=== PATIENT | male | born 1970 | race Caucasian/White ===

== ENCOUNTER 2016-06-28 20:16 | Inpatient (IN) | payer OTHER ==
[2016-06-28] MEDS ORDERED: DIPH,PERTUS(ACELL)TETVAC-LF 0.5 ML VIAL IM ONE (21:25)
[2016-06-28] MEDS ORDERED: MORPHINE SULFATE 2 MG/ML SYRINGE IVP STA (21:25)
[2016-06-28] MEDS ORDERED: ACETAMINOPHEN TAB 325 MG TAB PO STA (21:25)
[2016-06-28] MEDS ORDERED: PIPERACILLIN-TAZOBACTAM 3.375 GM in DEXTROSE/WATER 1 50ML.BAG IVPB STA (21:28)
[2016-06-28 22:18] LABS: Basophils # (A) 0.2 k/uL (0-0.2); Basophils % (A) 1 %; CH 32.8; CHCM 37.5; Eosinophils # (A) 0.2 k/uL (0-0.7); Eosinophils % (A) 1 %; HCT 40.2 % (39.0-53.0); HGB 14.9 gm/dL (13.0-17.5); Hyperchromasia Slight; Luc # (Auto) 0.19; Luc % (Auto) 1; Lymphocytes % (A) 7 %; MCH 32.7 pg (25.0-35.0); MCHC 37.1 g/dL (31.0-37.0); Mean Platelet Volume 7.2; Monocytes # (A) 0.7 k/uL (0-1.0); Monocytes % (A) 5 %; Neutrophils # (A) 12.4 k/uL (1.3-7.7); Neutrophils % (A) 85 %; RBC 4.57 m/uL (4.30-5.90); RDW 12.8 % (11.5-15.5); WBC 14.6 k/uL (3.8-10.6); WBC (Perox) 14.42
[2016-06-28 22:24] LABS: ALT 40 U/L (21-72); AST 40 U/L (17-59); Alkaline Phosphatase 68 U/L (38-126); Anion Gap 12 mmol/L; Blood Urea Nitrogen 16 mg/dL (9-20); Calcium 8.9 mg/dL (8.4-10.2); Carbon Dioxide 22 mmol/L (22-30); Chloride 102 mmol/L (98-107); Glucose 118 mg/dL (74-99); Non-African American GFR(MDRD) >60 (>60 ml/min/1.73 sqM); Potassium 4.6 mmol/L (3.5-5.1); Sodium 136 mmol/L (137-145); Total Bilirubin 0.9 mg/dL (0.2-1.3); Total Protein 7.1 g/dL (6.3-8.2)
--- NOTE | 2016-06-28 22:26 | XR ---
EXAM: XR Right Knee, 3 views. CLINICAL HISTORY: Reason: Pain TECHNIQUE: Three views of the right knee. COMPARISON: No relevant prior studies available. FINDINGS: Bones/joints: No acute fracture or dislocation. Mild degenerative spurring of the tibial spines. Small patellar osteophytes. Prominent quadriceps enthesophyte. No significant right knee effusion. Soft tissues: Unremarkable. IMPRESSION: No acute osseous abnormality. Mild degenerative changes.
[2016-06-28] MEDS ORDERED: VANCOMYCIN 1,000 MG in SODIUM CHLORIDE 0.9% 250 ML IVPB STA (22:27)
--- NOTE | 2016-06-28 23:19 | ED ---
Extremity Problem HPI - General Chief complaint: Extremity Problem,Nontraumatic Stated complaint: Knee Pain/Infection Time Seen by Provider: 06/28/16 21:10 Source: patient Mode of arrival: ambulatory Limitations: no limitations - History of Present Illness Initial comments: He was seen by his family doctor today for right-sided leg and the knee cellulitis, he was given intramuscular antibiotic injection and was sent home with Augmentin 1 g by mouth twice a day, he presents to the ER with a fever of 101 and a cellulitis was marked by his family doctor now it's spreading beyond the highlight her markings on his knee is getting more painful and fever is not responding to Tylenol. It started couple days ago and in spite of for outpatient antibiotic treatment is getting worse. No headaches no neck stiffness no chest pain no abdominal pain no frequency urgency dysuria pain in the infection area is worse now - Related Data Home Medications Medication Instructions Recorded Confirmed Amoxic-Pot Clav 875-125Mg 1 tab PO Q12H 06/28/16 06/28/16 [Augmentin 875-125] Cholecalciferol [Vitamin D3] 2,000 unit PO DAILY 06/28/16 06/28/16 Citalopram Hydrobromide [CeleXA] 40 mg PO HS 06/28/16 06/28/16 Ibuprofen [Motrin] 800 mg PO Q8H PRN 06/28/16 06/28/16 Lisinopril [Zestril] 20 mg PO HS 06/28/16 06/28/16 Multivitamins, Thera [Multivitamin] 1 tab PO DAILY 06/28/16 06/28/16 Allergies Allergy/AdvReac Type Severity Reaction Status Date / Time No Known Allergies Allergy Verified 06/28/16 21:18 Review of Systems ROS Statement: Those systems with pertinent positive or pertinent negative responses have been documented in the HPI. ROS Other: All systems not noted in ROS Statement are negative. Past Medical History Past Medical History: Hypertension Past Surgical History: No Surgical Hx Reported Past Psychological History: Depression Smoking Status: Never smoker Past Alcohol Use History: None Reported Past Drug Use History: None Reported General Exam - General Exam Comments Initial Comments: General: The patient is awake and alert, in no distress, and does not appear acutely ill. Skin: Skin is warm and dry and no rashes or lesions are noted. He has a large area of cellulitis above the knee and below the knee, is quite large area about 15 inches long and about 8 inches wide tender is erythematous and somewhat warm and even compromising the knee movement Eye: Pupils are equal, round and reactive to light, extra-ocular movements are intact; there is normal conjunctiva bilaterally. Ears, nose, mouth and throat: There are moist mucous membranes and no oral lesions. Neck: The neck is supple, there is no tenderness or JVD. Cardiovascular: There is a regular rate and rhythm. No murmur, rub or gallop is appreciated. He is bit tachycardic Respiratory: To auscultation bilateral, no wheezing no rhonchi no distress respiratory gupta noticed Gastrointestinal: Soft, non-distended, non-tender abdomen without masses or organomegaly noted. There is no rebound or guarding present. Bowel sounds are unremarkable. Back: There is no tenderness to palpation in the midline. There is no obvious deformity. Musculoskeletal: Normal ROM, no tenderness, There is no pedal edema. There is no calf tenderness or swelling. No cords were appreciated. Neurological: CN II-XII intact, Cranial nerves III through XII are intact. There are no obvious motor or sensory deficits. Coordination appears grossly intact. Speech is normal. Psychiatric: Cooperative, appropriate mood & affect, normal judgment. Limitations: no limitations Course Vital Signs 06/28/16 06/28/16 20:59 23:07 Temperature 101.0 F H 101.3 F H Pulse Rate 103 H 90 Respiratory 16 16 Rate Blood Pressure 153/76 123/58 O2 Sat by Pulse 95 100 Oximetry Discussed patient's labs with him and recommended that we put him in the hospital for the IV antibiotics and will consult infectious disease as well as orthopedics to ensure that the infection is not affecting the knee joint Medical Decision Making - Lab Data Result diagrams: 06/28/16 22:00 06/28/16 22:00 Lab Results 06/28/16 06/28/16 Range/Units 22:00 22:00 WBC 14.6 H (3.8-10.6) k/uL RBC 4.57 (4.30-5.90) m/uL Hgb 14.9 (13.0-17.5) gm/dL Hct 40.2 (39.0-53.0) % MCV 88.0 (80.0-100.0) fL MCH 32.7 (25.0-35.0) pg MCHC 37.1 H (31.0-37.0) g/dL RDW 12.8 (11.5-15.5) % Plt Count 170 (150-450) k/uL Neutrophils % 85 % Lymphocytes % 7 % Monocytes % 5 % Eosinophils % 1 % Basophils % 1 % Neutrophils # 12.4 H (1.3-7.7) k/uL Lymphocytes # 1.0 (1.0-4.8) k/uL Monocytes # 0.7 (0-1.0) k/uL Eosinophils # 0.2 (0-0.7) k/uL Basophils # 0.2 (0-0.2) k/uL Hyperchromasia Slight Sodium 136 L (137-145) mmol/L Potassium 4.6 (3.5-5.1) mmol/L Chloride 102 (98-107) mmol/L Carbon Dioxide 22 (22-30) mmol/L Anion Gap 12 mmol/L BUN 16 (9-20) mg/dL Creatinine 1.08 (0.66-1.25) mg/dL Est GFR (MDRD) Af Amer >60 (>60 ml/min/1.73 sqM) Est GFR (MDRD) Non-Af >60 (>60 ml/min/1.73 sqM) Glucose 118 H (74-99) mg/dL Calcium 8.9 (8.4-10.2) mg/dL Total Bilirubin 0.9 (0.2-1.3) mg/dL AST 40 (17-59) U/L ALT 40 (21-72) U/L Alkaline Phosphatase 68 (38-126) U/L Total Protein 7.1 (6.3-8.2) g/dL Albumin 4.2 (3.5-5.0) g/dL Disposition Clinical Impression: Cellulitis Disposition: ADMITTED IP TO THIS HOSP Condition: Good
[2016-06-28] MEDS ORDERED: ACETAMINOPHEN TAB 325 MG TAB PO PRN (23:22)
[2016-06-28] MEDS ORDERED: ONDANSETRON 4 MG/2 ML VIAL IVP PRN (23:22)
[2016-06-28] MEDS ORDERED: NALOXONE 0.4 MG/ML 1 ML VIAL IV PRN (23:22)
[2016-06-28] MEDS ORDERED: IBUPROFEN 600 MG TAB PO STA (23:47)
[2016-06-29 00:48] VITALS: BMI 36.3
[2016-06-29] MEDS ORDERED: CITALOPRAM HYDROBROMIDE 20 MG TAB PO STA (01:08)
[2016-06-29] MEDS: MORPHINE SULFATE 4 MG/ML SYRINGE IV PRN ×4 (07:57→21:11)
[2016-06-29] MEDS ORDERED: PIPERACILLIN-TAZOBACTAM 3.375 GM in DEXTROSE/WATER 1 50ML.BAG IVPB SCH (08:00)
--- NOTE | 2016-06-29 08:21 | P.CNOR ---
History of Present Illness - HPI Consult date: 06/29/16 History of present illness: This is a pleasant 46-year-old gentleman who began having some soreness in his right knee on Monday. He noted a small poke hole at the anterior aspect of his knee. On Monday he had increased soreness and presented to his primary care physician on Monday. He was given a intermuscular shot of antibiotics and Augmentin. His symptoms continued to worsen and he had a fever of 101. Subsequently he presented to the emergency department. Since his admission he is had marked improvement in his symptoms. He seen and evaluated at bedside with Dr. Collins Kim this morning. Overall he is feeling better. He has no new complaints at this time. He denies any history of trauma or fall. Review of Systems See HPI Past Medical History Past Medical History: Hypertension, Sleep Apnea/CPAP/BIPAP History of Any Multi-Drug Resistant Organisms: None Reported Past Surgical History: Hernia Repair Past Psychological History: Depression Smoking Status: Former smoker Past Alcohol Use History: None Reported Past Drug Use History: None Reported - Past Family History Father Family Medical History: Congestive Heart Failure (CHF) Additional Family Medical History / Comment(s): Depression Mother Family Medical History: Cancer, Hyperlipidemia Medications and Allergies Home Medications Medication Instructions Recorded Confirmed Type Amoxic-Pot Clav 875-125Mg 1 tab PO Q12H 06/28/16 06/28/16 History [Augmentin 875-125] Cholecalciferol [Vitamin D3] 2,000 unit PO DAILY 06/28/16 06/28/16 History Citalopram Hydrobromide [CeleXA] 40 mg PO HS 06/28/16 06/28/16 History Ibuprofen [Motrin] 800 mg PO Q8H PRN 06/28/16 06/28/16 History Lisinopril [Zestril] 20 mg PO HS 06/28/16 06/28/16 History Multivitamins, Thera [Multivitamin] 1 tab PO DAILY 06/28/16 06/28/16 History Allergies Allergy/AdvReac Type Severity Reaction Status Date / Time No Known Allergies Allergy Verified 06/28/16 21:18 Physical Examination Patient is alert and orientated 3. He is not appear acutely ill. He is not appear in acute distress. Head normal cephalic atraumatic. Neck is supple. Breathing appears nonlabored. There is a large area has been marked around his right knee. There is a small area of cellulitis. Cellulitis appears much improved from the previous markings. There is somewhat warm over the area of erythema. He is not appear to have any joint effusion on palpation. Motion from near full extension to 90 flexion. Calf is soft and nontender. Sensation and circulatory status is intact. Results Knee x-rays are negative for fracture or dislocation. No joint effusion. - Labs Result Diagrams: 06/28/16 22:00 06/28/16 22:00 Assessment and Plan (1) Cellulitis Status: Acute Plan: The clinical and x-ray findings were discussed with the patient at bedside with Dr. Collins Kim. Patient's symptoms are consistent with septic prepatellar bursitis. There is no joint effusion and he has fairly good range of motion of the knee without much difficulty. The patient has had significant improvement with IV antibiotics since his admission. At this point no surgical intervention is planned. Continue with IV antibiotics and moist heat. We'll follow patient closely with you. Thank you for this consult.
[2016-06-29 08:47] LABS: Basophils % (A) 0 %; CH 32.3; CHCM 36.9; Eosinophils # (A) 0.1 k/uL (0-0.7); Eosinophils % (A) 1 %; HCT 40.9 % (39.0-53.0); HDW 2.95; HGB 14.5 gm/dL (13.0-17.5); Luc # (Auto) 0.23; Luc % (Auto) 2; Lymphocytes % (A) 7 %; MCH 31.3 pg (25.0-35.0); MCHC 35.5 g/dL (31.0-37.0); MCV 88.2 fL (80.0-100.0); Mean Platelet Volume 7.2; Monocytes # (A) 0.9 k/uL (0-1.0); Monocytes % (A) 7 %; Neutrophils # (A) 11.6 k/uL (1.3-7.7); Neutrophils % (A) 84 %; RBC 4.63 m/uL (4.30-5.90); RDW 12.8 % (11.5-15.5); WBC 13.9 k/uL (3.8-10.6); WBC (Perox) 14.43
[2016-06-29 08:52] LABS: ALT 39 U/L (21-72); AST 33 U/L (17-59); Alkaline Phosphatase 62 U/L (38-126); Anion Gap 11 mmol/L; Blood Urea Nitrogen 15 mg/dL (9-20); Calcium 8.7 mg/dL (8.4-10.2); Carbon Dioxide 22 mmol/L (22-30); Chloride 107 mmol/L (98-107); Glucose 100 mg/dL (74-99); Non-African American GFR(MDRD) >60 (>60 ml/min/1.73 sqM); Potassium 4.6 mmol/L (3.5-5.1); Sodium 140 mmol/L (137-145); Total Bilirubin 1.1 mg/dL (0.2-1.3); Total Protein 6.7 g/dL (6.3-8.2)
[2016-06-29] MEDS: MULTIVITAMINS, THERA 1 EACH TAB PO SCH (13:29)
[2016-06-29] MEDS: ENOXAPARIN 40 MG/0.4 ML SYRINGE SQ SCH (13:29)
[2016-06-29] MEDS: CHOLECALCIFEROL 1,000 UNIT TAB PO SCH (13:29)
[2016-06-29] MEDS: CLINDAMYCIN 600 MG in DEXTROSE 5% IN WATER 50 ML IVPB SCH ×2 (16:24)
[2016-06-29] MEDS: NAPROXEN 250 MG TAB PO SCH ×2 (16:24→22:03)
[2016-06-29] MEDS: ceFAZolin 2 GM in SODIUM CHLORIDE 0.9% 100 ML IVPB SCH (17:46)
[2016-06-29] MEDS: SODIUM CHLORIDE 0.9% 1,000 ML IV SCH (17:46)
[2016-06-29] MEDS: LISINOPRIL 20 MG TAB PO SCH (22:07)
[2016-06-29] MEDS: CITALOPRAM HYDROBROMIDE 20 MG TAB PO SCH (22:07)
--- NOTE | 2016-06-29 22:26 | HP ---
DATE OF ADMISSION: 06/28/2016 PRESENTING COMPLAINT: Pain, swelling and redness around the right knee. HISTORY OF PRESENTING COMPLAINT: This is a pleasant 46-year-old patient of Dr. Morrow ) who chronic stable medical conditions include hypertension, sleep apnea, depression. Patient presented with pain, swelling, redness around the right knee getting worse. Patient has been working on his knee in the garage. Patient did take antibiotics in the office in form of Augmentin and the area continued to grow and patient therefore decided to come in. Patient did spike a fever up to 101. The patient's is at the bedside. REVIEW OF SYSTEMS: CONSTITUTIONAL: Febrile. HEENT: None. RESPIRATORY: None. CARDIOVASCULAR: None. GASTROINTESTINAL: None. GENITOURINARY: None. MUSCULOSKELETAL: As above. Dermatological: None. HEMATOLOGICAL: None. LYMPHATICS: None. PSYCHIATRY: None. NEUROLOGICAL: None. Past medical history of hypertension, obstructive sleep apnea, depression. PAST SURGICAL HISTORY: Hernia repair. SOCIAL HISTORY: The patient employed. . Does not smoke or drink alcohol. FAMILY HISTORY: Congestive heart failure, depression. HOME MEDICATIONS: 1. Multivitamin 1 tablet p.o. daily. 2. Zestril 20 mg p.o. q.h.s. 3. Motrin 800 mg p.o. q.8 p.r.n. 4. Celexa 40 mg q.h.s. 5. Vitamin D3 2000 units p.o. daily. 6. Augmentin 875, 1 tablet p.o. q.12. ALLERGIES: None. On examination vital signs on presentation: Temperature 101, pulse 103, respirations 16, blood pressure 153/76, pulse ox 95% on room air. GENERAL APPEARANCE: well built, BMI 36.3, sitting up, not in distress. EYES: Pupils equal. Conjunctivae normal. HEENT: External appearance of nose and ears normal. Oral cavity normal. NECK: JVD not raised. Mass not palpable. RESPIRATORY: Effort normal. Lungs are clear. CARDIOVASCULAR: First and second seconds are normal. No edema. ABDOMEN: Soft, nontender. Liver and spleen not palpable. LYMPHATIC: No lymph nodes palpable in neck or axillae. PSYCHIATRY: Alert and oriented x3. Mood and affect normal. NEUROLOGICAL: Pupils equal. Cranial nerves grossly intact. Power and sensation grossly intact. Dermatological: The patient has got redness around right knee anteriorly with some bogginess in the bursa area. Swelling, redness has gone down from the area that is marked. INVESTIGATIONS: White count 14.6, hemoglobin, potassium 4.6. ASSESSMENT: 1. Right knee cellulitis with possible ( ) bursitis having failed outpatient treatment causing sepsis. 2. Obesity, body mass index of 36.3. 3. Essential hypertension. 4. Obstructive sleep apnea uses CPAP machine. 5. Depression, not otherwise specified. PLAN: Patient was started on Zosyn in the ER. Later ID saw the patient and switched the patient over to IV Ancef and clindamycin. The patient also getting IV fluids. Care was discussed in detail with the patient and the at the bedside. Will give naproxen. We will give naproxen ( ) affect. Orthopedics were also consulted to see if possibly needs to be drained.
[2016-06-30] MEDS: CLINDAMYCIN 600 MG in DEXTROSE 5% IN WATER 50 ML IVPB SCH ×8 (01:07→23:01)
[2016-06-30] MEDS: ceFAZolin 2 GM in SODIUM CHLORIDE 0.9% 100 ML IVPB SCH ×4 (01:53→23:42)
[2016-06-30] MEDS: MORPHINE SULFATE 4 MG/ML SYRINGE IV PRN ×5 (02:29→22:45)
[2016-06-30] MEDS: SODIUM CHLORIDE 0.9% 1,000 ML IV SCH ×3 (02:40→17:11)
--- NOTE | 2016-06-30 08:02 | CONS ---
DATE OF CONSULTATION: 06/29/2016 REASON FOR CONSULTATION: Right knee cellulitis. HISTORY OF PRESENT ILLNESS: The patient is a 46-year-old male who presented to the ER with chief complaint of pain, swelling and redness of the right knee and lower leg area. The patient says that he works a lot has been kneeling on his knee mostly all during his work. He noticed a small pimple on the anterior area subsequently the area becoming more swollen and red and painful. Pain described to be throbbing, about 5 to 6 out of 10 in severity of almost 9 before he presented to the ER. Patient was initially at his PCP office yesterday morning where the patient did receive a dose of IM antibiotics and was discharged on amoxicillin and the patient took a dose without a significant improvement and presented to the ER. The patient did have a fever of 101 degrees Fahrenheit and did have elevated white count 14,000. He did have an x-ray of the knee which did show no acute abnormality and mild degenerative changes. The patient was started on Zosyn and I was asked to see the patient for further recommendation regarding antibiotic therapy. Ortho has already seen the patient and not recommending any surgical I&D. REVIEW OF SYSTEMS: CONSTITUTIONAL: Positive for weakness along with fever. EYES: No complaint. ENT: No complaint. RESPIRATORY: No complaint. CARDIOVASCULAR: No complaint. GENITOURINARY: No complaint. MUSCULOSKELETAL: As per HPI. INTEGUMENTARY: As per HPI. PSYCHOLOGICAL: No complaint. ENDOCRINE: No complaint. NEUROLOGIC: No complaint. PAST MEDICAL HISTORY: Hypertension, depression. PAST SURGICAL HISTORY: No major surgery. SOCIAL HISTORY: No history of smoking, drinking or drug use. FAMILY HISTORY: No pertinent findings were noticed. ALLERGIES: No known drug allergies. Medications include the patient is currently on: 1. Zosyn. 2. Tylenol. 3. Vitamin D3. 4. Celexa. 5. Lovenox. 6. Zestril. 7. Morphine sulfate. 8. Theragran. 9. Narcan. 10. Naproxen. 11. Zofran. On examination, blood pressure is 138/74 with a pulse of 75, temperature 98.3. He is 96% on room air. General description is a middle-aged male up in the bed in no distress. No tachypnea or accessory muscles of respiration use. HEENT examination shows no pallor. No scleral icterus. Oral mucous membranes dry. NECK: Trachea central. There is no thyromegaly. LUNGS: Unlabored breathing. Clear to auscultation anteriorly. HEART: S1, S2. Regular rate and rhythm. ABDOMEN: Soft. No tenderness nor rigidity. EXTREMITIES: No edema of feet. Examination of the right leg the patient did have erythema around the knee area, which is warm to touch. Tender. no significant fluctuation was noticed. No skin breakdown or any drainage. NEUROLOGICAL: The patient is awake, alert, oriented x3. Mood and affect normal. LABS: Hemoglobin is 14.5, white count 13.9, admission white count was 14.6 with a BUN of 15, creatinine 0.59. Blood culture obtained, which are currently pending. DIAGNOSTIC IMPRESSION AND PLAN: Patient with acute right lower extremity cellulitis with a question of possible prepatellar bursitis. The patient kneels on his knee while at work , more likely from Gram-positive skin rey and could more likely Streptococcus as the patient did show overall slight improvement with decreased redness on the Zosyn which would not have been the case if we were dealing with an MRSA infection. Recommend optimizing the treatment for Streptococcus cellulitis. PLAN: 1. Discontinue the Zosyn. 2. Will start the patient on cefazolin 2 gm along with clindamycin 600 IV q.8. 3. Patient advised ice packing of the area and to avoid warm compression. 4. Will follow up on his clinical condition and cultures to further adjust the medication if needed. Family present at beside. All their questions and concerns were answered. KASH
[2016-06-30] MEDS: ENOXAPARIN 40 MG/0.4 ML SYRINGE SQ SCH (08:06)
[2016-06-30] MEDS: CHOLECALCIFEROL 1,000 UNIT TAB PO SCH (08:06)
[2016-06-30] MEDS: MULTIVITAMINS, THERA 1 EACH TAB PO SCH (08:06)
[2016-06-30] MEDS: NAPROXEN 250 MG TAB PO SCH ×2 (08:06→20:06)
--- NOTE | 2016-06-30 08:44 | P.PN ---
Subjective Principal diagnosis: Prepatellar bursitis right knee This is a 46-year-old male who is admitted to [facility] for septic prepatellar bursitis right knee. He has been on IV antibiotics. He states that the moist heat he tried at home May this pain worse. He has not tried any moist heat since his admission. He reports no new problems or concerns today. Vital signs are stable. Objective - Vital Signs Vital signs: Vital Signs Temp 97.7 F 06/30/16 07:00 Pulse 70 06/30/16 07:00 Resp 20 06/30/16 07:00 BP 131/75 06/30/16 07:00 Pulse Ox 95 06/30/16 07:00 Intake & Output 06/29/16 06/30/16 06/30/16 18:59 06:59 18:59 Intake Total 100 600 Balance 100 600 Intake: Intake, IV Titration 100 Amount ceFAZolin 2 gm In Sodium 100 Chloride 0.9% 100 ml @ 100 mls/hr IVPB Q8HR [facility] Rx#:[id number] Oral 600 Other: # Voids 1 - Exam This is a pleasant 38-year-old male in no acute distress. He is alert and oriented 3. Exam of the right knee reveals that his erythema has receded significantly. There is still a small area of fluctuance and erythema at the prepatellar bursa. There are no open wounds or drainage. His motion is improved today. Neurovascular status to the lower extremity is intact. - Labs CBC & Chem 7: 06/29/16 08:10 06/29/16 08:10 Labs: Abnormal Lab Results - Last 24 Hours (Table) 06/29/16 06/29/16 Range/Units 08:10 08:10 WBC 13.9 H (3.8-10.6) k/uL Plt Count 134 L (150-450) k/uL Neutrophils # 11.6 H (1.3-7.7) k/uL Glucose 100 H (74-99) mg/dL Assessment and Plan (1) Septic prepatellar bursitis of right knee Status: Acute (2) Cellulitis Status: Acute Plan: The clinical findings are discussed the patient. His knee does seem to be improving with IV antibiotics. We will defer management to internal medicine and infectious disease. There is no surgical indication at this time. We'll continue to follow throughout his stay.
--- NOTE | 2016-06-30 17:40 | PN ---
DATE OF SERVICE: 06/30/2016 Reason for follow-up is right lower extremity cellulitis and a question of prepatellar bursitis. INTERVAL HISTORY: The patient is afebrile. Overall pain and swelling to the right knee is currently improved. Swelling and redness has slightly receded. There is no skin breakdown, there is no drainage. Denies having any chest pain, shortness of breath or cough. No abdominal pain. No diarrhea. On examination, blood pressure is 131/75 with a pulse of 73, temperature 97.7. He is 95% on room air. General description is a middle-age male up in the bed in no distress. RESPIRATORY SYSTEM: Unlabored breathing. Clear to auscultation anteriorly. HEART: S1, S2. Regular rate and rhythm. ABDOMEN: Soft. No tenderness. Right leg swelling and redness have improved. Slight area of fluctuance, but no drainage. LABS: No new lab has been obtained today. Blood pressure has been negative. DIAGNOSTIC IMPRESSION AND PLAN: Patient with right lower extremity cellulitis with a component of possible prepatellar bursitis. Patient at this time will continue cefazolin and Clinda with concern for possible streptococcal cellulitis. Will repeat a CBC and BMP for tomorrow. Depending on the clinical response will determine his discharge antibiotics. Family present at bedside. Their questionable were answered.
[2016-06-30] MEDS: LISINOPRIL 20 MG TAB PO SCH (20:07)
[2016-06-30] MEDS: CITALOPRAM HYDROBROMIDE 20 MG TAB PO SCH (20:07)
[2016-07-01] MEDS: SODIUM CHLORIDE 0.9% 1,000 ML IV SCH ×3 (01:20→21:27)
[2016-07-01] MEDS: MORPHINE SULFATE 4 MG/ML SYRINGE IV PRN ×3 (06:22→21:29)
--- NOTE | 2016-07-01 07:36 | PN ---
DATE OF SERVICE: 06/30/2016 PRESENTING COMPLAINT: Cellulitis and prepatellar bursitis. INTERVAL HISTORY: This is a patient who presented with cellulitis of the right anterior knee wall and prepatellar bursitis. Pain and swelling continues to go down. Still there is a point of bogginess. No systemic fever. Area of redness goes down. Review of systems done for constitutional, cardiovascular, GI, pulmonary; dermatological; relevant findings as above. Current medications are reviewed that include clindamycin and cephazolin. On examination, temperature 97.7, pulse 70, respiration 20, blood pressure 131/75, pulse ox 95% on room air. GENERAL APPEARANCE: Sitting up, comfortable. EYES: Pupils equal. Conjunctivae normal. NECK: JVD not raised. Mass not a problem. RESPIRATORY: Effort normal. Lungs are clear. CARDIOVASCULAR: First and second sounds normal. No edema. ABDOMEN: Soft, nontender. Liver and spleen not palpable. PSYCHIATRY: Alert and oriented x3. Mood and affect normal. DERMATOLOGICAL: Decreased redness, some bugginess in the anterior part of the knee in the prepatellar area. INVESTIGATIONS: No blood work from today. ASSESSMENT: 1. Right knee cellulitis with prepatellar bursitis having failed outpatient treatments causing sepsis on presentation. 2. Obesity, body mass index of 36.3. 3. Essential hypertension. 4. Obstructive sleep apnea, uses CPAP machine. 5. Depression, not otherwise specified. PLAN: I spoke to Dr. Ibarra. We both feel patient may benefit from I&D of the bursitis. I did have the nurse check with orthopedics if they would consider draining it if still felt to be appropriate. This was discussed with the patient.
[2016-07-01] MEDS: CLINDAMYCIN 600 MG in DEXTROSE 5% IN WATER 50 ML IVPB SCH ×4 (07:55→21:26)
[2016-07-01] MEDS: CHOLECALCIFEROL 1,000 UNIT TAB PO SCH (07:55)
[2016-07-01] MEDS: NAPROXEN 250 MG TAB PO SCH ×2 (07:56→22:57)
[2016-07-01] MEDS: MULTIVITAMINS, THERA 1 EACH TAB PO SCH (07:56)
[2016-07-01] MEDS: ENOXAPARIN 40 MG/0.4 ML SYRINGE SQ SCH (07:57)
[2016-07-01 08:22] LABS: Basophils % (A) 0 %; CH 32.1; CHCM 36.4; Eosinophils # (A) 0.4 k/uL (0-0.7); Eosinophils % (A) 4 %; HCT 35.7 % (39.0-53.0); HDW 3.01; HGB 12.6 gm/dL (13.0-17.5); Luc # (Auto) 0.24; Luc % (Auto) 3; Lymphocytes % (A) 12 %; MCH 31.4 pg (25.0-35.0); MCHC 35.4 g/dL (31.0-37.0); MCV 88.8 fL (80.0-100.0); Mean Platelet Volume 7.4; Monocytes # (A) 0.5 k/uL (0-1.0); Monocytes % (A) 7 %; Neutrophils % (A) 74 %; RBC 4.02 m/uL (4.30-5.90); RDW 12.6 % (11.5-15.5); WBC 8.2 k/uL (3.8-10.6); WBC (Perox) 7.92
[2016-07-01 08:46] LABS: Anion Gap 8 mmol/L; Blood Urea Nitrogen 11 mg/dL (9-20); Calcium 8.4 mg/dL (8.4-10.2); Carbon Dioxide 25 mmol/L (22-30); Chloride 107 mmol/L (98-107); Glucose 91 mg/dL (74-99); Non-African American GFR(MDRD) >60 (>60 ml/min/1.73 sqM); Potassium 4.6 mmol/L (3.5-5.1); Sodium 140 mmol/L (137-145)
[2016-07-01] MEDS: ceFAZolin 2 GM in SODIUM CHLORIDE 0.9% 100 ML IVPB SCH ×2 (09:16→21:20)
[2016-07-01] MEDS ORDERED: IV FLUID CONTINUATION 600 ML IV ONE (15:22)
[2016-07-01] MEDS ORDERED: ONDANSETRON 4 MG/2 ML VIAL IVP ONE (15:56)
[2016-07-01] MEDS ORDERED: DEXAMETHASONE SOD PHOSPHATE 10 MG/ML 1 ML VIAL IV ONE (15:57)
[2016-07-01] MEDS ORDERED: SCOPOLAMINE 1.5MG/72HR PATCH TRANSDERM ONE (15:58)
[2016-07-01] MEDS ORDERED: SUCCINYLCHOLINE CHLORIDE 100 MG/5 ML SYR IV ONE (16:30)
[2016-07-01] MEDS ORDERED: PROPOFOL 10 MG/ML 20 ML VIAL IV ONE (16:30)
[2016-07-01] MEDS ORDERED: FUROSEMIDE 10 MG/ML 2 ML VIAL ONE (16:30)
[2016-07-01] MEDS ORDERED: KETAMINE 10 MG/ML 20 ML VIAL ONE (16:30)
[2016-07-01] MEDS ORDERED: LIDOCAINE 1% INJ 10MG/ML (20 ML MDV) ONE (16:30)
[2016-07-01] MEDS ORDERED: MIDAZOLAM 2 MG/2 ML VIAL ONE (16:30)
[2016-07-01] MEDS ORDERED: fentaNYL (PF) 50 MCG/ML 2 ML AMP ONE (16:30)
[2016-07-01] MEDS ORDERED: ceFAZolin 3,000 MG in SODIUM CHLORIDE 0.9% IRRIGATIO 3,000 ML IRRIGATION ONE (16:48)
[2016-07-01] MEDS ORDERED: BUPIVACAINE (PF) 0.25% 30 ML VIAL SQ ONE (16:52)
--- NOTE | 2016-07-01 17:11 | PN ---
DATE OF SERVICE: 07/01/2016 REASON FOR FOLLOWUP: Right knee prepatellar bursitis and lower extremity cellulitis. INTERVAL HISTORY: The patient did have a low-grade fever of 100.4 last night; afebrile since then. Pain is currently controlled with pain medication. The patient denies having any chest pain, shortness of breath or cough. No abdominal pain or any diarrhea. On examination, blood pressure is 103/67 with a pulse of 62, temperature 96.9. He is 96% on room air. General description is a middle-aged male lying in bed in no distress. RESPIRATORY SYSTEM: Unlabored breathing. Clear to auscultation anteriorly. HEART: S1, S2. Regular rate and rhythm. ABDOMEN: Soft. No tenderness. RIGHT KNEE: Swelling and redness very localized. Warm to touch. No drainage. LABS: White count normalized to 8.2. BUN of 11, creatinine 0.79. DIAGNOSTIC IMPRESSION AND PLAN: Patient with right lower extremity cellulitis with right knee prepatellar bursitis for bursectomy this afternoon. Culture has been requested. Continue patient on cefazolin and clindamycin. Additional antibiotics will depend on the culture report. Continue supportive care.
--- NOTE | 2016-07-01 17:49 | XR ---
EXAMINATION TYPE: XR chest 1V portable DATE OF EXAM: 07/01/2016 5:35 PM COMPARISON: NONE HISTORY: Pulmonary edema. TECHNIQUE: Single frontal view of the chest is obtained. FINDINGS: Diffuse alveolar and interstitial opacities are seen radiating from the shayy and a central predominance. There is evidence of mild cardiomegaly. Lung bases are clear with delineation of the c ostophrenic angles. Overlying soft tissues are grossly unremarkable. Osseous structures appear intact . IMPRESSION: Changes most consistent with interstitial and alveolar pulmonary edema. This may be card iogenic or noncardiogenic in origin and could relate to ARDS.
--- NOTE | 2016-07-01 18:30 | P.PN ---
Progress Note - Text 1808 anesthesia. Patient was brought to the operating room for an I&D of his right knee which had become infected apparently hematogenously. He received a general endotracheal anesthetic in part because he had had breakfast, was large of girth, had a history of GERD, and had been receiving narcotics for pain relief. On emergence just prior to extubation the patient bit on the endotracheal tube, occluded it, and inhaled against a closed airway. The occlusion was relieved by manually opening the patient's jaw. At this point pulmonary edema fluid appeared in the endotracheal tube and a diagnosis of negative pressure pulmonary edema was entertained. Because the patient was now quite awake and indicating vigorously that he wished the endotracheal tube removed it was. He was given 20 mg of Lasix taken to the recovery room on a simple mask with 10 L O2 and after producing 450 mL of urine exhibited an improvement in his peripheral blood O2 saturations to well above 90%. The patient is currently resting comfortably and is not tachypneic. A chest x-ray that was taken on arrival to the recovery room showed a generalized fluffy alveolar pattern consistent with the entertained diagnosis. Currently the plan is to observe the patient overnight on oxygen via simple mask with the head of the bed at 45. A follow-up chest x-ray will be taken in the morning and his vital signs evaluated to determine if any further intervention is necessary.
[2016-07-01] MEDS ORDERED: FUROSEMIDE 10 MG/ML 2 ML VIAL IVP ONE (18:34)
--- NOTE | 2016-07-01 19:13 | P.OP ---
Date of Procedure: 07/01/16 Preoperative Diagnosis: Septic prepatellar bursitis right knee Postoperative Diagnosis: Septic prepatellar bursitis right knee Procedure(s) Performed: Incision and drainage of prepatellar bursitis right knee Anesthesia: LUIS Surgeon: Collins Kim Estimated Blood Loss (ml): 20 Pathology: other (Cultures 2) Condition: stable Disposition: PACU Indications for Procedure: This is a 46-year-old gentleman that presented to the emergency room on Monday with pain and swelling and redness of his right knee. He was diagnosed with prepatellar bursitis admitted to the hospital for antibiotic treatment. He was seen on Monday morning and found have significant improvement of the bursitis. He was reevaluated on Monday and found to have increased redness pain and swelling in the right leg. After lengthy discussion with him and his , I recommended incision and drainage of the prepatellar bursa of the right knee, and informed consent was obtained. Operative Findings: The operative findings are consistent with septic prepatellar bursitis the right knee with a moderate amount of purulence was encountered. There is no evidence of extension into the knee joint. Description of Procedure: Patient was seen in the preoperative area consent was reviewed and operative site was marked with a skin marker. Patient was then brought to the operating room and given preoperative antibiotics intravenously. A general anesthetic was administered by the anesthesia department. A universal timeout was then performed which confirmed the patient's name, surgical site, ALLERGIES, and consent. A standard and anterior midline approach to the knee was performed. The skin and subcutaneous tissue was dissected down to the patellar bursa. A mild amount of purulent material was expressed. This was cultured 2. Next, using a Rominger, any suspicious tissue was removed bluntly with a Rominger. Next, antibiotic solution via pulsatile lavage was irrigated throughout the bursa. The bursa was then inspected and found to have no connection with the knee joint. After thorough irrigation, the wound was then closed with 2-0 Vicryl, followed by perri. 20 mL of quarter percent plain Marcaine were then injected about the surgical site. Sterile dressing was applied and patient was transferred to the recovery room
[2016-07-01] MEDS ORDERED: HYDROmorphone 1 MG/ML 1 ML SYRINGE IVP ONE (19:15)
[2016-07-01] MEDS: LISINOPRIL 20 MG TAB PO SCH (22:57)
[2016-07-01] MEDS: CITALOPRAM HYDROBROMIDE 20 MG TAB PO SCH (22:57)
[2016-07-02] MEDS: ceFAZolin 2 GM in SODIUM CHLORIDE 0.9% 100 ML IVPB SCH ×3 (03:50→17:07)
[2016-07-02] MEDS: SODIUM CHLORIDE 0.9% 1,000 ML IV SCH ×4 (03:54→22:53)
[2016-07-02] MEDS: CLINDAMYCIN 600 MG in DEXTROSE 5% IN WATER 50 ML IVPB SCH ×6 (04:28→17:07)
[2016-07-02 06:26] LABS: Anion Gap 10 mmol/L; Blood Urea Nitrogen 18 mg/dL (9-20); Calcium 8.7 mg/dL (8.4-10.2); Carbon Dioxide 23 mmol/L (22-30); Chloride 107 mmol/L (98-107); Glucose 136 mg/dL (74-99); Non-African American GFR(MDRD) >60 (>60 ml/min/1.73 sqM); Potassium 4.6 mmol/L (3.5-5.1); Sodium 140 mmol/L (137-145)
[2016-07-02] MEDS: MORPHINE SULFATE 4 MG/ML SYRINGE IV PRN ×3 (06:57→16:08)
--- NOTE | 2016-07-02 07:52 | XR ---
EXAMINATION TYPE: XR chest 1V DATE OF EXAM: 07/02/2016 7:09 AM COMPARISON: 07/01/2016 INDICATION: Pulmonary edema TECHNIQUE: Single frontal view of the chest is obtained. FINDINGS: The heart size is normal. The pulmonary vasculature is prominent. Infiltrates are present to the upper lung stokes bilaterally. This has significant improvement from t he prior study. Continued follow-up is recommended. IMPRESSION: 1. Improving upper lobe infiltrates. Findings can be compatible with pulmonary edema.
--- NOTE | 2016-07-02 09:13 | PN ---
DATE OF SERVICE: 07/01/2016 This patient had gone to the OR for drainage hence patient was not seen by me. I did come back a second time he had not returned.
--- NOTE | 2016-07-02 09:22 | P.PN ---
Progress Note - Text 0 800. Anesthesia. POD 1. Patient is status post I&D of his right knee under general endotracheal anesthesia. During emergence the endotracheal tube became occluded and the patient inspired against a closed airway and developed negative pressure pulmonary edema. Chest x-ray is much improved today. Patient is resting comfortably, vital signs are stable, and SaO2 is 95 on nasal cannula O2.
[2016-07-02] MEDS: ENOXAPARIN 40 MG/0.4 ML SYRINGE SQ SCH (09:54)
[2016-07-02] MEDS: CHOLECALCIFEROL 1,000 UNIT TAB PO SCH (09:55)
[2016-07-02] MEDS: NAPROXEN 250 MG TAB PO SCH ×2 (09:56→22:54)
[2016-07-02] MEDS: MULTIVITAMINS, THERA 1 EACH TAB PO SCH (09:56)
--- NOTE | 2016-07-02 11:46 | P.PN ---
Subjective Principal diagnosis: Prepatellar bursitis right knee This is a 46-year-old male who is admitted to [facility] for septic prepatellar bursitis right knee. He has been on IV antibiotics. He is status post I&D of the right knee. He developed some pulmonary edema intraoperatively and was transferred to selective care unit. He has no new complaints or concerns today. He states he still feels a little bit short of breath today. Objective - Vital Signs Vital signs: Vital Signs Temp 97.8 F 07/02/16 04:00 Pulse 60 07/02/16 04:00 Resp 16 07/02/16 04:00 BP 123/66 07/02/16 04:00 Pulse Ox 95 07/02/16 04:00 Intake & Output 07/01/16 07/02/16 07/02/16 18:59 06:59 18:59 Intake Total 4200 1430 236 Output Total 870 1350 Balance 3330 80 236 Weight 114.4 kg Intake: IV 3200 Intake, IV Titration 1000 650 Amount Clindamycin 600 mg In 50 Dextrose 5% in Water 50 ml @ 100 mls/hr IVPB Q8HR [facility] Rx#:[id number] Sodium Chloride 0.9% 1, 1000 500 000 ml @ 125 mls/hr IV . Q8H [facility] Rx#:[id number] ceFAZolin 2 gm In Sodium 100 Chloride 0.9% 100 ml @ 100 mls/hr IVPB Q8HR [facility] Rx#:[id number] Oral 780 236 Output: Urine 850 1350 Estimated Blood Loss 20 Other: Voiding Method Toilet Toilet # Voids 6 - Exam This is a pleasant 38-year-old male in no acute distress. He is alert and oriented 3. Exam of the right knee reveals that his erythema has receded significantly. Incision looks good with no active drainage. There is small amount of bloody drainage on the dressing. Neurovascular status to the lower extremity is intact. - Labs CBC & Chem 7: 07/01/16 07:41 07/02/16 05:40 Labs: Abnormal Lab Results - Last 24 Hours (Table) 07/02/16 Range/Units 05:40 Glucose 136 H (74-99) mg/dL Microbiology - Last 24 Hours (Table) 07/01/16 12:00 Gram Stain - Preliminary Knee - Right Wound Culture - Preliminary 07/01/16 12:00 Anaerobic Culture - Preliminary Knee - Right Assessment and Plan (1) Septic prepatellar bursitis of right knee Status: Acute (2) Cellulitis Status: Acute (3) Status post debridement Status: Acute Plan: The clinical findings are discussed the patient. He is to continue antibiotics as per infectious disease. He may be discharged to home from orthopedic standpoint. He is to follow-up with Dr. Collins Kim in 10 days.
--- NOTE | 2016-07-02 12:16 | CONS ---
DATE OF CONSULTATION: Mr. Herr is a 46-year-old gentleman who is seen for cardiac evaluation. This patient's medical records reviewed. This patient has a history of hypertension, sleep apnea and depression. The patient was admitted with cellulitis and bursitis of the right knee. Patient underwent incision and drainage yesterday as he was recovering he bit the endotracheal tube and subsequently developed acute respiratory distress and the patient went into the pulmonary edema. Patient was subsequently extubated. He received Lasix 20 mg IV. After the patient recovered from anesthesia, he did not complain of any chest pain. Patient denies any previous cardiac history of heart failure or myocardial infarction. There is no history of diabetes. Past medical history includes history of hypertension, obstructive sleep apnea, and depression, history of a hernia repair. Patient's home medications include: 1. Zestril. 2. Motrin. 3. Celexa. 4. The patient was on Augmentin. Physical examination at present reveals a 46-year-old obesely built gentleman who is not in any acute respiratory distress, oxygen saturation is 95%. Blood pressure is 123/66 mm of Hg. Head, HEENT examination is negative. Neck is supple. There is no increase in jugular venous pressure. Both the carotid pulses are felt. There is no bruit. Chest is symmetrical. HEART: The PMI is not felt. First and second heart sounds are normal. Lung examination reveals a few scattered wheezes. ABDOMEN: Soft. Liver and spleen are not enlarged. Bowel sounds are heard. EXTREMITIES: Peripheral pulsations are 2+. Preop EKG was normal. Chest x-ray done yesterday showed evidence of acute pulmonary edema which was not very clear cut whether it is cardiogenic or noncardiogenic pulmonary edema. Chest x-ray shows improvement in the bilateral lung infiltrates. FINAL IMPRESSION: This patient developed acute pulmonary edema as he was recovering from anesthesia, exact etiology undetermined. Whether this was cardiogenic or noncardiogenic but the patient seems to be responding to the diuretics. We will do the EKGs and cardiac enzymes and echo and Doppler study will be done. We will also continue on Lasix 20 mg IV q.12 hourly for next 24 hours and check the ( ) and also suggest a pulmonary consultation and check the BNP level.
--- NOTE | 2016-07-02 13:00 | P.CNPUL ---
History of Present Illness Consult date: 07/02/16 Requesting physician: Rufino Quezada Chief complaint: Possible aspiration pneumonia, or negative pressure pulmonary edema History of present illness: This is a 46-year-old white male with history of hypertension, obstructive sleep apnea syndrome, presented to the ER on 06/29/2016, patient presented with mostly right knee cellulitis and soreness. Patient was started on antibiotics, and he had temp of 101. Patient was seen by orthopedics on consultation, and he was felt to have septic prepatellar bursitis. Hence he was advised to undergo incision and drainage of the right knee, in the meantime the patient was seen by infectious disease and he was placed on broad-spectrum antibiotics. Yesterday, the patient underwent surgery on his right knee, however it during emergence endotracheal intubation, according to the anesthesia staff, his tube became occluded, and the patient was in spotting against a closed airway. It was felt that the patient must have had a negative pressure pulmonary edema. No documentation of any aspiration of any stomach material into the lungs. Patient clearly developed a clear-cut appearance of pulmonary edema on the chest x-ray, postoperatively patient received Lasix, and his chest x-ray today showed significant improvement compared to the chest x-ray done yesterday. Clinically the patient is feeling better, minimal cough, no shortness of breath , no wheezing, no chest pain. Patient was having an echocardiogram at the time of my evaluation, and preliminary report shows good LV function. Hence this is most likely a picture of negative pressure pulmonary edema transient and will likely improve over the next 24 hours. Patient remains in the meantime on a minimal dose of Lasix of 20 mg IV push every 12 hours. Review of Systems 14 point review of systems were obtained, please refer to pertinent positives and negatives in HPI Past Medical History Past Medical History: Hypertension, Sleep Apnea/CPAP/BIPAP History of Any Multi-Drug Resistant Organisms: None Reported Past Surgical History: Hernia Repair Past Psychological History: Depression Smoking Status: Former smoker Past Alcohol Use History: None Reported Past Drug Use History: None Reported - Past Family History Father Family Medical History: Congestive Heart Failure (CHF) Additional Family Medical History / Comment(s): Depression Mother Family Medical History: Cancer, Hyperlipidemia Medications and Allergies Home Medications Medication Instructions Recorded Confirmed Type Amoxic-Pot Clav 875-125Mg 1 tab PO Q12H 06/28/16 06/28/16 History [Augmentin 663-125] Cholecalciferol [Vitamin D3] 2,000 unit PO DAILY 06/28/16 06/28/16 History Citalopram Hydrobromide [CeleXA] 40 mg PO HS 06/28/16 06/28/16 History Ibuprofen [Motrin] 800 mg PO Q8H PRN 06/28/16 06/28/16 History Lisinopril [Zestril] 20 mg PO HS 06/28/16 06/28/16 History Multivitamins, Thera [Multivitamin] 1 tab PO DAILY 06/28/16 06/28/16 History Allergies Allergy/AdvReac Type Severity Reaction Status Date / Time No Known Allergies Allergy Verified 07/01/16 15:33 Physical Exam Vitals: Vital Signs Temp Pulse Pulse Resp BP Pulse Ox 07/02/16 04:00 97.8 F 60 16 123/66 95 07/02/16 00:00 97.9 F 73 17 132/69 96 07/01/16 21:15 98.3 F 64 18 142/84 94 L 07/01/16 20:00 67 16 121/73 93 L 07/01/16 19:30 64 16 121/72 94 L 07/01/16 19:01 62 18 140/71 07/01/16 18:45 72 16 124/76 91 L 07/01/16 18:30 72 18 118/59 91 L 07/01/16 18:15 74 18 121/66 87 L 07/01/16 18:00 80 14 131/63 85 L 07/01/16 17:46 84 18 126/61 91 L 07/01/16 17:30 80 18 130/67 92 L 07/01/16 17:18 97.7 F 91 18 133/70 87 L 07/01/16 15:26 98.1 F 60 16 135/83 95 07/01/16 15:00 98.1 F 62 18 147/70 94 L Intake and Output 07/01/16 07/02/16 07/02/16 22:59 06:59 14:59 Intake Total 4330 300 236 Output Total 2220 Balance 2110 300 236 Intake: IV 3200 Intake, IV Titration 650 Amount Clindamycin 600 mg In 50 Dextrose 5% in Water 50 ml @ 100 mls/hr IVPB Q8HR [facility] Rx#:[id number] Sodium Chloride 0.9% 1, 500 000 ml @ 125 mls/hr IV . Q8H [facility] Rx#:[id number] ceFAZolin 2 gm In Sodium 100 Chloride 0.9% 100 ml @ 100 mls/hr IVPB Q8HR [facility] Rx#:[id number] Oral 480 300 236 Output: Urine 2200 Estimated Blood Loss 20 Other: Voiding Method Toilet Toilet Weight 114.4 kg Physical Exam: Revealed a 46-year-old white male in no distress HEENT:[Neck is supple.] [No neck masses.] [No thyromegaly.] [No JVD.] Chest: [Clear throughout, no crackles, no rhonchi, no wheezes.] Cardiac Exam: [Normal S1 and S2, no S3 gallop, no murmur.] Abdomen: [Soft, nontender, no megaly, no rebound, no guarding, normal bowel sounds.] Extremities: His right lower extremity is wrapped with Ravin bandage, could not visualize the area of cellulitis, patient is status post surgery on his right knee.] Neurological Exam: [No focal neurologic deficit.] Results - Laboratory Findings CBC and BMP: 07/01/16 07:41 07/02/16 05:40 Abnormal lab findings: Abnormal Labs 06/29/16 06/29/16 07/01/16 08:10 08:10 07:41 WBC 13.9 H RBC 4.02 L Hgb 12.6 L Hct 35.7 L Plt Count 134 L Neutrophils # 11.6 H Glucose 100 H 07/02/16 05:40 WBC RBC Hgb Hct Plt Count Neutrophils # Glucose 136 H - Diagnostic Findings Chest x-ray: image reviewed (2 chest x-rays were reviewed, the initial one showed fulminant picture of pulmonary edema, the follow-up chest x-ray today showed significant improvement but not complete resolution of the interstitial edema.) Assessment and Plan Plan: Impression: 1 acute negative pressure pulmonary edema improving with gentle diuresis. Strongly doubt aspiration or aspiration pneumonia. Recommendation: Continue present treatment plan, follow-up chest x-ray in a.m., will continue to follow. Continue antibiotics for his prepatellar bursitis. Patient is status post incision and drainage of right knee. Time with Patient: Greater than 30
[2016-07-02] MEDS: FUROSEMIDE 10 MG/ML 2 ML VIAL IV SCH ×2 (17:08→22:54)
--- NOTE | 2016-07-02 18:23 | P.PN ---
Subjective -year-old gentleman who was admitted to the hospital with fevers chills and right-sided knee pain. Patient was noted to have a prepatellar bursitis status post incision and drainage. During the procedure patient was noted to have, patient with difficulty breathing. Patient was noted a pulmonary vessel congestion initially attributed to cardiac clinic in nature however patient apparently did have an obstructed ET tube and hence was thought to be secondary to negative pressure noncardiogenic edema. Today patient states that he is doing well complains of intermittent pain in his right knee however denies any fevers, chills, nausea, vomiting, or urinary urgency or frequency. Patient has had a few watery bowel movements. Objective - Vital Signs Vital signs: Vital Signs Temp 97.7 F 07/02/16 11:50 Pulse 62 07/02/16 11:50 Resp 18 07/02/16 11:50 BP 128/71 07/02/16 11:50 Pulse Ox 95 07/02/16 11:50 Intake & Output 07/01/16 07/02/16 07/02/16 18:59 06:59 18:59 Intake Total 4200 1430 1336 Output Total 870 1350 Balance 3330 80 1336 Weight 114.4 kg Intake: IV 3200 Intake, IV Titration 4448 842 7660 Amount Clindamycin 600 mg In 50 Dextrose 5% in Water 50 ml @ 100 mls/hr IVPB Q8HR [facility] Rx#:[id number] Sodium Chloride 0.9% 1, 7548 261 2928 000 ml @ 125 mls/hr IV . Q8H [facility] Rx#:[id number] ceFAZolin 2 gm In Sodium 100 100 Chloride 0.9% 100 ml @ 100 mls/hr IVPB Q8HR [facility] Rx#:[id number] Oral 780 236 Output: Urine 850 1350 Estimated Blood Loss 20 Other: Voiding Method Toilet Toilet # Voids 6 - Exam Physical exam Gen. appearance oriented 3 in no distress Neck is supple no JVD Lungs good air entry clear to auscultation no rhonchi or wheezing however does have some mild abnormal sounds are on the hypopharynx. Heart S1-S2 heard regular rate and rhythm no murmurs appreciated Abdomen is soft nontender no organomegaly bowel sounds are intact Neurologically cranial nerves II-12 grossly intact no focal motor or sensory deficits noted Right knee appropriately tender to palpation no erythema noted. Skin no abnormalities appreciated - Labs CBC & Chem 7: 07/01/16 07:41 07/02/16 05:40 Labs: Abnormal Lab Results - Last 24 Hours (Table) 07/02/16 Range/Units 05:40 Glucose 136 H (74-99) mg/dL Microbiology - Last 24 Hours (Table) 07/01/16 12:00 Gram Stain - Preliminary Knee - Right Wound Culture - Preliminary 07/01/16 12:00 Anaerobic Culture - Preliminary Knee - Right Assessment and Plan Plan: 1 sepsis secondary to right prepatellar bursitis #2 noncardiogenic pulmonary edema #3 laryngitis likely secondary to recent upper airway procedure causing cough And Continue ongoing care once final cultures are noted patient will likely be discharged on oral antibiotics. Patient's breathing is improved. We'll need to titrate of oxygen. Encourage ambulation as tolerated.
[2016-07-02] MEDS: MORPHINE SULFATE 4 MG/ML SYRINGE IVP PRN ×2 (19:26→22:59)
[2016-07-02] MEDS ORDERED: IV VANCOMYCIN PER PHARMACY 1 EACH MISC MISCELLANE PRN (21:35)
[2016-07-02] MEDS: CITALOPRAM HYDROBROMIDE 20 MG TAB PO SCH (22:53)
[2016-07-02] MEDS: LISINOPRIL 20 MG TAB PO SCH (22:54)
[2016-07-03] MEDS: CHOLESTYRAMINE (WITH SUGAR) 4 GM PACKET PO SCH ×3 (00:09→22:24)
[2016-07-03] MEDS: VANCOMYCIN 1,750 MG in SODIUM CHLORIDE 0.9% 250 ML IVPB SCH ×4 (00:09→17:24)
[2016-07-03] MEDS: MORPHINE SULFATE 4 MG/ML SYRINGE IVP PRN ×8 (02:03→23:06)
--- NOTE | 2016-07-03 08:24 | PN ---
DATE OF SERVICE: 07/02/2016 Reason for follow up is right knee prepatellar bursitis, septic, with right leg cellulitis. INTERVAL HISTORY: The patient is afebrile. The patient is status post right knee I&D of the prepatellar bursitis by Dr. Kim yesterday. Patient seemed to have slight problem with anesthesia. Subsequently, patient has been adamant the telemetry floor and is being treated for possible congestive heart failure by both Cardiology and Pulmonary service. The patient's breathing has slightly improved though. Patient denies significant chest pain. No cough. No abdominal pain. Pain to the right knee is currently controlled. On examination, blood pressure is 136/74 with a pulse of 54, temperature 98.2. He is 95% on 2 liters nasal cannula. General description is a middle-age male up in the bed in no distress. RESPIRATORY SYSTEM: Unlabored breathing with decreased breath sounds at the bases. No wheeze. HEART: S1, S2. Regular rate and rhythm. ABDOMEN: Soft, no tenderness. Right leg is currently dressed up. No obvious drainage on the dressing. LABS: BUN 18, creatinine 0.6, creatinine 0.70. The patient did have stool for C. difficile, which is negative. Wound cultures now showing presumptive Staphylococcus aureus. DIAGNOSTIC IMPRESSION AND PLAN: Patient with right knee prepatellar septic bursitis status post I&D. Culture now showing a staph aureus with concern for possible methicillin-resistant Staphylococcus aureus. Vancomycin will be added. As the patient is having diarrhea will discontinue the clindamycin and cefazolin and add Questran for symptomatic relief and toxin binding. Family present at beside. Their questions and concerns were answered.
--- NOTE | 2016-07-03 09:05 | XR ---
EXAMINATION TYPE: XR chest 2V DATE OF EXAM: 07/03/2016 6:49 AM COMPARISON: 07/02/2016 INDICATION: Pulmonary edema TECHNIQUE: Single frontal view of the chest is obtained. FINDINGS: The heart size is normal. The pulmonary vasculature is borderline prominent significantly diminished from prior study. Lingular infiltrate has largely resolved with mild residual remaining. Suspicious focal consolidation is not evident IMPRESSION: 1. Resolving congestive heart failure. Mild residual overload remains. Continued follow-up can be per formed.
[2016-07-03] MEDS: CHOLECALCIFEROL 1,000 UNIT TAB PO SCH (09:41)
[2016-07-03] MEDS: NAPROXEN 250 MG TAB PO SCH ×2 (09:41→22:24)
[2016-07-03] MEDS: MULTIVITAMINS, THERA 1 EACH TAB PO SCH (09:41)
[2016-07-03] MEDS: ENOXAPARIN 40 MG/0.4 ML SYRINGE SQ SCH (09:41)
[2016-07-03] MEDS: FUROSEMIDE 10 MG/ML 2 ML VIAL IV SCH ×2 (09:42→22:24)
[2016-07-03] MEDS: SODIUM CHLORIDE 0.9% 1,000 ML IV SCH ×2 (09:43→17:24)
--- NOTE | 2016-07-03 11:32 | P.PN ---
Subjective Principal diagnosis: Prepatellar bursitis right knee This is a 46-year-old male who is admitted to [facility] for septic prepatellar bursitis right knee. He has been on IV antibiotics. He is status post I&D of the right knee. He developed some pulmonary edema intraoperatively and was transferred to selective care unit. He has no new complaints or concerns today. He states he still feels that his lungs are improving. Objective - Vital Signs Vital signs: Vital Signs Temp 98.0 F 07/03/16 04:00 Pulse 57 L 07/03/16 04:00 Resp 17 07/03/16 04:00 BP 117/67 07/03/16 04:00 Pulse Ox 95 07/03/16 04:00 Intake & Output 07/02/16 07/03/16 07/03/16 18:59 06:59 18:59 Intake Total 1336 980 Output Total 700 Balance 1336 280 Weight 114.9 kg Intake: Intake, IV Titration 1100 500 Amount Sodium Chloride 0.9% 1, 1000 500 000 ml @ 125 mls/hr IV . Q8H [facility] Rx#:[id number] ceFAZolin 2 gm In Sodium 100 Chloride 0.9% 100 ml @ 100 mls/hr IVPB Q8HR [facility] Rx#:[id number] Oral 236 480 Output: Urine 700 Other: Voiding Method Toilet # Voids 0 - Exam This is a pleasant 46-year-old male in no acute distress. He is alert and oriented 3. Exam of the right knee reveals that his erythema has receded significantly. Incision looks good with no active drainage. There is no drainage on the dressing. He has significantly increased swelling to the lower leg. Mild calf pain with palpation. Pedal pulses +2/4. - Labs CBC & Chem 7: 07/01/16 07:41 07/02/16 05:40 Labs: Microbiology - Last 24 Hours (Table) 07/01/16 12:00 Gram Stain - Preliminary Knee - Right Wound Culture - Preliminary Presumptive Staph aureus Assessment and Plan (1) Septic prepatellar bursitis of right knee Status: Acute (2) Cellulitis Status: Acute (3) Status post debridement Status: Acute (4) Pain and swelling of right lower leg Status: Acute Plan: The clinical findings are discussed the patient. He is to continue antibiotics as per infectious disease. I've ordered a venous Doppler evaluation of the right lower leg. I've encouraged him to keep the leg elevated while in bed.
--- NOTE | 2016-07-03 12:22 | US ---
EXAMINATION TYPE: US venous doppler duplex LE RT DATE OF EXAM: 07/03/2016 12:02 PM COMPARISON: NONE CLINICAL HISTORY: increased swelling RLE, R/O DVT. SIDE PERFORMED: Right VESSELS IMAGED: External Iliac Vein (EIV) Common Femoral Vein Deep Femoral Vein Greater Saphenous Vein * Femoral Vein Popliteal Vein Small Saphenous Vein * Proximal Calf Veins (* superficial vessels) TECHNOLOGIST IMPRESSION: wnl Right Leg: Negative for DVT No popliteal fossa lesion is seen. IMPRESSION: THIS EXAMINATION IS NEGATIVE FOR DVT WITHIN THE RIGHT LEG.
--- NOTE | 2016-07-03 12:41 | P.PN ---
Subjective Principal diagnosis: Acute prepatellar bursitis of the right knee and negative pressure pulmonary edema This is a 46-year-old white male with history of hypertension, obstructive sleep apnea syndrome, presented to the ER on 06/29/2016, patient presented with mostly right knee cellulitis and soreness. Patient was started on antibiotics, and he had temp of 101. Patient was seen by orthopedics on consultation, and he was felt to have septic prepatellar bursitis. Hence he was advised to undergo incision and drainage of the right knee, in the meantime the patient was seen by infectious disease and he was placed on broad-spectrum antibiotics. Yesterday, the patient underwent surgery on his right knee, however it during emergence endotracheal intubation, according to the anesthesia staff, his tube became occluded, and the patient was in spotting against a closed airway. It was felt that the patient must have had a negative pressure pulmonary edema. No documentation of any aspiration of any stomach material into the lungs. Patient clearly developed a clear-cut appearance of pulmonary edema on the chest x-ray, postoperatively patient received Lasix, and his chest x-ray today showed significant improvement compared to the chest x-ray done yesterday. Clinically the patient is feeling better, minimal cough, no shortness of breath , no wheezing, no chest pain. Patient was having an echocardiogram at the time of my evaluation, and preliminary report shows good LV function. Hence this is most likely a picture of negative pressure pulmonary edema transient and will likely improve over the next 24 hours. Patient remains in the meantime on a minimal dose of Lasix of 20 mg IV push every 12 hours. Reevaluated today on 07/03/2016, patient is feeling much better, breathing a lot easier, actually he has no pulmonary symptoms whatsoever. And his chest x-ray showed complete clearance of his interstitial edema bilaterally. Electrolytes were noted to be normal. CBC was normal. Echocardiogram is pending. Objective - Vital Signs Vital signs: Vital Signs Temp 98.0 F 07/03/16 04:00 Pulse 57 L 07/03/16 04:00 Resp 17 07/03/16 04:00 BP 117/67 07/03/16 04:00 Pulse Ox 95 07/03/16 04:00 Intake & Output 07/02/16 07/03/16 07/03/16 18:59 06:59 18:59 Intake Total 1336 980 Output Total 700 Balance 1336 280 Weight 114.9 kg Intake: Intake, IV Titration 1100 500 Amount Sodium Chloride 0.9% 1, 1000 500 000 ml @ 125 mls/hr IV . Q8H LUIS CARLOS Rx#:[id number] ceFAZolin 2 gm In Sodium 100 Chloride 0.9% 100 ml @ 100 mls/hr IVPB Q8HR LUIS CARLOS Rx#:[id number] Oral 236 480 Output: Urine 700 Other: Voiding Method Toilet # Voids 0 - Exam Physical Exam: Revealed a 46-year-old white male in no distress HEENT:[Neck is supple.] [No neck masses.] [No thyromegaly.] [No JVD.] Chest: [Clear throughout, no crackles, no rhonchi, no wheezes.] Cardiac Exam: [Normal S1 and S2, no S3 gallop, no murmur.] Abdomen: [Soft, nontender, no megaly, no rebound, no guarding, normal bowel sounds.] Extremities: His right lower extremity is wrapped with Ravin bandage, could not visualize the area of cellulitis, patient is status post surgery on his right knee.] Neurological Exam: [No focal neurologic deficit.] - Labs CBC & Chem 7: 07/01/16 07:41 07/02/16 05:40 Labs: Microbiology - Last 24 Hours (Table) 07/01/16 12:00 Gram Stain - Preliminary Knee - Right Wound Culture - Preliminary Presumptive Staph aureus Assessment and Plan Plan: Impression: 1 acute negative pressure pulmonary edema improving with gentle diuresis. Resolved. Hence the patient was reassured, and we will follow on when necessary basis. Recommendation: Reviewed chest x-ray, looks relatively normal, hence the patient is cleared from our perspective for possible discharge once is cleared by infectious disease and orthopedics. Time with Patient: Less than 30
--- NOTE | 2016-07-03 14:31 | P.PN ---
Subjective Principal diagnosis: Pulmonary Edema This is a 46 year old patient admitted with cellultis and bruscitis of the riht knee. Pt Developed pulmonary edema was intubated and extubated. Objective - Vital Signs Vital signs: Vital Signs Temp 98.2 F 07/03/16 11:30 Pulse 55 L 07/03/16 11:30 Resp 18 07/03/16 11:30 BP 124/72 07/03/16 11:30 Pulse Ox 96 07/03/16 11:30 Intake & Output 07/02/16 07/03/16 07/03/16 18:59 06:59 18:59 Intake Total 1336 980 850 Output Total 700 Balance 1336 280 850 Weight 114.9 kg Intake: Intake, IV Titration 1100 500 250 Amount Sodium Chloride 0.9% 1, 1000 500 000 ml @ 125 mls/hr IV . Q8H LUIS CARLOS Rx#:[id number] Vancomycin 1,750 mg In 250 Sodium Chloride 0.9% 250 ml @ 125 mls/hr IVPB Q8HR LUIS CARLOS Rx#:[id number] ceFAZolin 2 gm In Sodium 100 Chloride 0.9% 100 ml @ 100 mls/hr IVPB Q8HR LUIS CARLOS Rx#:[id number] Oral 236 480 600 Output: Urine 700 Other: Voiding Method Toilet # Voids 0 - Labs CBC & Chem 7: 07/01/16 07:41 07/02/16 05:40 Labs: Microbiology - Last 24 Hours (Table) 07/01/16 12:00 Gram Stain - Preliminary Knee - Right Wound Culture - Preliminary Presumptive Staph aureus
--- NOTE | 2016-07-03 15:12 | ECHOF ---
Referral Reason:pulm edema MEASUREMENTS -------- HEIGHT: 182.9 cm WEIGHT: 114.3 kg BP: 123/66 RVIDd: 3.0 cm (< 3.3) IVSd: 1.2 cm (0.6 - 1.1) LVIDd: 4.8 cm (3.9 - 5.3) LVPWd: 1.2 cm (0.6 - 1.1) IVSs: 1.7 cm LVIDs: 3.3 cm LVPWs: 1.4 cm LA Diam: 3.9 cm (2.7 - 3.8) LAESV Index (A-L): 35.35 ml/m Ao Diam: 3.0 cm (2.0 - 3.7) AV Cusp: 2.1 cm (1.5 - 2.6) LA Diam: 3.5 cm (2.7 - 3.8) MV EXCURSION: 15.119 mm (> 18.000) MV EF SLOPE: 103 mm/s (70 - 150) EPSS: 0.3 cm MV E Mark: 1.27 m/s MV DecT: 169 ms MV A Mark: 0.72 m/s MV E/A Ratio: 1.77 FINDINGS -------- Sinus rhythm. This was a technically adequate study. Left ventricular wall thickness is normal. Overall left ventricular systolic function is normal with, an EF between 60 - 65 %. The right ventricle is normal in size. LA is moderately dilated 34-39 ml/m2 The right atrium is normal in size. Aortic valve is trileaflet and is mildly thickened. Mild mitral annular calcification present. Mild mitral regurgitation is present. Trace tricuspid regurgitation present. Trace/mild (physiologic) pulmonic regurgitation. The aortic root size is normal. Normal inferior vena cava with normal inspiratory collapse consistent with estimated right atrial pressure of 5 mmHg. There is no pericardial effusion. CONCLUSIONS -------- 1. Sinus rhythm. 2. Mild mitral regurgitation is present. 3. Trace tricuspid regurgitation present. 4. Trace/mild (physiologic) pulmonic regurgitation. 5. The aortic root size is normal. 6. Normal inferior vena cava with normal inspiratory collapse consistent with estimated right atrial pressure of 5 mmHg. 7. There is no pericardial effusion. 8. This was a technically adequate study. 9. Left ventricular wall thickness is normal. 10. Overall left ventricular systolic function is normal with, an EF between 60 - 65 %. 11. The right ventricle is normal in size. 12. LA is moderately dilated 34-39 ml/m2 13. The right atrium is normal in size. 14. Aortic valve is trileaflet and is mildly thickened. 15. Mild mitral annular calcification present. DATABASE MANAGEMENT SPECIALIST: Ila Storm RDCS
--- NOTE | 2016-07-03 16:06 | P.PN ---
Subjective 46year-old gentleman who was admitted to the hospital with fevers chills and right-sided knee pain. Patient was noted to have a prepatellar bursitis status post incision and drainage. During the procedure patient was noted to have, patient with difficulty breathing. Patient was noted a pulmonary vessel congestion initially attributed to cardiac clinic in nature however patient apparently did have an obstructed ET tube and hence was thought to be secondary to negative pressure noncardiogenic edema. Today patient states that he is doing well complains of intermittent pain in his right knee however denies any fevers, chills, nausea, vomiting, or urinary urgency or frequency. Patient has had a few watery bowel movements. 07/03/2016 Patient denies having any additional complaints at this time. No fevers chills nausea vomiting reported. Patient was noted to have some additional swelling in the right lower extremity underwent a DVT study which was negative. Objective - Vital Signs Vital signs: Vital Signs Temp 98.2 F 07/03/16 11:30 Pulse 55 L 07/03/16 11:30 Resp 18 07/03/16 11:30 BP 124/72 07/03/16 11:30 Pulse Ox 96 07/03/16 11:30 Intake & Output 07/02/16 07/03/16 07/03/16 18:59 06:59 18:59 Intake Total 1336 980 850 Output Total 700 Balance 1336 280 850 Weight 114.9 kg Intake: Intake, IV Titration 1100 500 250 Amount Sodium Chloride 0.9% 1, 1000 500 000 ml @ 125 mls/hr IV . Q8H LUIS CARLOS Rx#:[id number] Vancomycin 1,750 mg In 250 Sodium Chloride 0.9% 250 ml @ 125 mls/hr IVPB Q8HR LUIS CARLOS Rx#:[id number] ceFAZolin 2 gm In Sodium 100 Chloride 0.9% 100 ml @ 100 mls/hr IVPB Q8HR LUIS CARLOS Rx#:[id number] Oral 236 480 600 Output: Urine 700 Other: Voiding Method Toilet # Voids 0 - Exam Physical exam Gen. appearance oriented 3 in no distress Neck is supple no JVD Lungs good air entry clear to auscultation no rhonchi or wheezing however does have some mild abnormal sounds are on the hypopharynx. Heart S1-S2 heard regular rate and rhythm no murmurs appreciated Abdomen is soft nontender no organomegaly bowel sounds are intact Neurologically cranial nerves II-12 grossly intact no focal motor or sensory deficits noted Right knee appropriately tender to palpation no erythema noted. Slight edema noted nonpitting in nature beneath the knee. Skin no abnormalities appreciated - Labs CBC & Chem 7: 07/01/16 07:41 07/02/16 05:40 Labs: Microbiology - Last 24 Hours (Table) 07/01/16 12:00 Gram Stain - Preliminary Knee - Right Wound Culture - Preliminary Presumptive Staph aureus Assessment and Plan Plan: 1 sepsis secondary to right prepatellar bursitis #2 noncardiogenic pulmonary edema #3 laryngitis likely secondary to recent upper airway procedure causing cough And \To current antibiotic therapy. Await final cultures. Depending on the results patient will likely be discharged in the next 24-48 hours either on IV or oral antibiotics. His breathing is stable. Continue ongoing care.
[2016-07-03] MEDS: LISINOPRIL 20 MG TAB PO SCH (22:24)
[2016-07-03] MEDS: CITALOPRAM HYDROBROMIDE 20 MG TAB PO SCH (22:24)
[2016-07-03] MEDS: ceFAZolin 2 GM in SODIUM CHLORIDE 0.9% 100 ML IVPB SCH (23:05)
[2016-07-04] MEDS: MORPHINE SULFATE 4 MG/ML SYRINGE IVP PRN ×4 (04:35→16:16)
[2016-07-04] MEDS ORDERED: VANCOMYCIN TROUGH DUE 1 EACH MISC MISCELLANE ONE (07:00)
--- NOTE | 2016-07-04 07:10 | PN ---
DATE OF SERVICE: 07/03/2016 Reason for followup is right knee septic prepatellar bursitis, MSSA. INTERVAL HISTORY: The patient is afebrile. He has been feeling slightly better. His diarrhea has improved. Breathing is improved. Denies significant chest pain or cough. On examination, blood pressure is 154/80 with a pulse of 76, temperature 98. He is 94% on room air. General description is a middle-aged male, lying in bed in no distress. RESPIRATORY SYSTEM: Unlabored breathing. Clear to auscultation anteriorly. HEART: S1, S2. Regular rate and rhythm. ABDOMEN: Soft, no tenderness. Right knee incision is currently dressed overall swelling and redness have improved. No drainage. LABS: No new lab has been obtained today. Wound culture finalized with MSSA, blood culture has been negative. DIAGNOSTIC IMPRESSION AND PLAN: Patient with right knee septic prepatellar bursitis, status post I&D, cultures with an methicillin susceptible Staphylococcus aureus. At this time antibiotic will be adjusted to cefazolin 2 gm q.8 with a plan to finish therapy with p.o. Keflex 500 q.6 for 2 weeks with outpatient followup. [facility]
[2016-07-04 07:18] LABS: Anion Gap 7 mmol/L; Blood Urea Nitrogen 16 mg/dL (9-20); Carbon Dioxide 30 mmol/L (22-30); Chloride 104 mmol/L (98-107); Glucose 84 mg/dL (74-99); Non-African American GFR(MDRD) >60 (>60 ml/min/1.73 sqM); Potassium 4.4 mmol/L (3.5-5.1); Sodium 141 mmol/L (137-145)
--- NOTE | 2016-07-04 08:26 | P.PN ---
Subjective Principal diagnosis: Prepatellar bursitis This is a 46-year-old gentleman who is status post I&D of the right knee for septic prepatellar bursitis. The patient developed pulmonary edema postoperatively and was transferred to select care unit. He seen and evaluated at bedside today. He currently denies any chest pain or shortness of breath. He wishes to be discharged home at this point. Objective - Vital Signs Vital signs: Vital Signs Temp 98.1 F 07/04/16 04:00 Pulse 65 07/04/16 04:00 Resp 16 07/04/16 04:00 BP 139/90 07/04/16 04:00 Pulse Ox 94 L 07/04/16 04:00 Intake & Output 07/03/16 07/04/16 07/04/16 18:59 06:59 18:59 Intake Total 1050 905 600 Balance 1050 905 600 Weight 113.5 kg Intake: Intake, IV Titration 250 425 Amount Sodium Chloride 0.9% 1, 300 000 ml @ 125 mls/hr IV . Q8H LUIS CARLOS Rx#:[id number] Vancomycin 1,750 mg In 250 125 Sodium Chloride 0.9% 250 ml @ 125 mls/hr IVPB Q8HR LUIS CARLOS Rx#:[id number] Oral 800 480 600 Other: Voiding Method Toilet # Voids 3 - Exam Patient does not appear in acute distress. He is alert and orientated 3. Erythema is much improved of his right knee. Incision is well healing with perri intact. There is no active drainage. This of swelling about the right lower extremity. Calf is soft and nontender. He has good foot and ankle motion without difficulty. Sensation and circulatory status is intact. - Labs CBC & Chem 7: 07/01/16 07:41 07/04/16 06:40 Labs: Microbiology - Last 24 Hours (Table) 07/01/16 12:00 Anaerobic Culture - Preliminary Knee - Right 07/01/16 12:00 Gram Stain - Preliminary Knee - Right Wound Culture - Final Staphylococcus aureus Assessment and Plan (1) Cellulitis Status: Acute (2) Septic prepatellar bursitis of right knee Status: Acute Plan: Continue with antibiotics as directed by infectious disease. The patient is orthopedically stable for discharge to home once he's been cleared medically. Patient will follow-up in our office for reevaluation as directed.
[2016-07-04] MEDS: ceFAZolin 2 GM in SODIUM CHLORIDE 0.9% 100 ML IVPB SCH ×2 (09:00→16:23)
[2016-07-04] MEDS: CHOLECALCIFEROL 1,000 UNIT TAB PO SCH (09:01)
[2016-07-04] MEDS: CHOLESTYRAMINE (WITH SUGAR) 4 GM PACKET PO SCH (09:02)
[2016-07-04] MEDS: ENOXAPARIN 40 MG/0.4 ML SYRINGE SQ SCH (09:02)
[2016-07-04] MEDS: FUROSEMIDE 10 MG/ML 2 ML VIAL IV SCH (09:02)
[2016-07-04] MEDS: MULTIVITAMINS, THERA 1 EACH TAB PO SCH (09:03)
[2016-07-04] MEDS: NAPROXEN 250 MG TAB PO SCH (09:04)
[2016-07-04 10:05] VITALS: TEMP 97.7
[2016-07-04] MEDS ORDERED: FUROSEMIDE 20 MG TAB PO SCH (16:00)
--- NOTE | 2016-07-04 16:07 | P.PN ---
Subjective Principal diagnosis: Pulmonary Edema This is a 46 year old patient admitted with cellultis and bruscitis of the right knee. Pt Developed pulmonary edema was intubated and extubated. After the patient was extubated he did not complain of any chest discomfort, breathing overall has been stable. Echocardiogram with Doppler study was performed which revealed normal left ventricular systolic function. Patient diuresed on IV Lasix, his weight is down today 1 kg from admission. Potassium 4.4, BUN 16, creatinine 0.8. We will discontinue the IV Lasix, he should be able to be discharged from cardiology's perspective to follow-up with Dr. VC Huff in the office post discharge Objective - Vital Signs Vital signs: Vital Signs Temp 97.7 F 07/04/16 08:45 Pulse 67 07/04/16 12:15 Resp 16 07/04/16 12:15 BP 146/86 07/04/16 12:15 Pulse Ox 98 07/04/16 12:15 Intake & Output 07/03/16 07/04/16 07/04/16 18:59 06:59 18:59 Intake Total 7299 405 7119 Output Total 600 Balance 1050 905 742 Weight 113.5 kg Intake: Intake, IV Titration 250 425 Amount Sodium Chloride 0.9% 1, 300 000 ml @ 125 mls/hr IV . Q8H LUIS CARLOS Rx#:[id number] Vancomycin 1,750 mg In 250 125 Sodium Chloride 0.9% 250 ml @ 125 mls/hr IVPB Q8HR LUIS CARLOS Rx#:[id number] Oral 893 [id number] 5130 Output: Urine 600 Other: Voiding Method Toilet # Voids 3 - Exam PHYSICAL EXAMINATION: HEENT: Head is atraumatic, normocephalic. Pupils equal, round. Neck is supple. There is no elevated jugular venous pressure. HEART EXAMINATION: Heart S1, S2 normal. No murmur or gallop heard. CHEST EXAMINATION: Lungs are clear to auscultation and precussion. No chest wall tenderness is noted on palpation or with deep breathing. ABDOMEN: Soft, nontender. Bowel sounds are heard. No organomegaly noted. EXTREMITIES: 2+ peripheral pulses with no evidence of peripheral edema and no calf tenderness noted. NEUROLOGIC patient is awake, alert and oriented -3. . - Labs CBC & Chem 7: 07/01/16 07:41 07/04/16 06:40 Labs: Microbiology - Last 24 Hours (Table) 07/01/16 12:00 Anaerobic Culture - Preliminary Knee - Right 07/01/16 12:00 Gram Stain - Preliminary Knee - Right Wound Culture - Final Staphylococcus aureus Assessment and Plan (1) Pulmonary edema with congestive heart failure with preserved left ventricular function Status: Acute (2) Septic prepatellar bursitis of right knee Status: Acute Plan: From cardiology's perspective, we'll discontinue the patient's IV Lasix. Start the patient on oral diuretics. He may be able to be discharged to follow-up with Dr. VC Huff in the office post discharge. DNP note has been reviewed, I agree with a documented findings and plan of care. Patient was seen and examined.
--- NOTE | 2016-07-04 17:00 | PN ---
DATE OF SERVICE: 07/04/2016 REASON FOR FOLLOWUP: Right knee MSSA septic prepatellar bursitis. INTERVAL HISTORY: The patient is afebrile. He has been breathing comfortably. Denies significant chest pain, shortness of breath or cough. Pain to the right knee is currently controlled. No diarrhea. On examination, blood pressure is 146/86, pulse of 67, temperature 97.7. He is 98% on room air. General description is a middle-aged male lying in bed in no distress. RESPIRATORY SYSTEM: Unlabored breathing. Clear to auscultation anteriorly. HEART: S1, S2. Regular rate and rhythm. ABDOMEN: Soft. No tenderness. RIGHT KNEE: Overall swelling and redness have improved. No drainage. LABS: BUN of 16 with a creatinine of 0.84. DIAGNOSTIC IMPRESSION AND PLAN: Patient with methicillin-susceptible Staphylococcus aureus right knee septic arthritis, status post bursectomy. Plan to finish therapy with p.o. Keflex 500 mg q.6 hours for 2 weeks with close outpatient followup. Continue supportive care.
[2016-07-04 17:16] VITALS: BP 134/80; PULSE 66; RESP 18
--- NOTE | 2016-07-04 17:24 | P.DS ---
Providers Date of admission: 06/28/16 23:23 Attending physician: Rufino Quezada Consults: 07/01/16 20:16 Consult Physician Routine Consulting Provider: Berta Huff Consult Reason/Comments: PULMONARY EDEMA Do you want consulting provider notified?: Yes 07/02/16 11:23 Consult Physician Routine Consulting Provider: Oneal Tobar Consult Reason/Comments: pulmonary edema Do you want consulting provider notified?: Yes Primary care physician: Ryan [facility] Hospital Course: 46year-old gentleman who was admitted to the hospital with fevers chills and right-sided knee pain. Patient was noted to have a prepatellar bursitis status post incision and drainage. During the procedure patient was noted to have, patient with difficulty breathing. Patient was noted a pulmonary vessel congestion initially attributed to cardiac clinic in nature however patient apparently did have an obstructed ET tube and hence was thought to be secondary to negative pressure noncardiogenic edema. Today patient states that he is doing well complains of intermittent pain in his right knee however denies any fevers, chills, nausea, vomiting, or urinary urgency or frequency. Patient has had a few watery bowel movements. 07/03/2016 Patient denies having any additional complaints at this time. No fevers chills nausea vomiting reported. Patient was noted to have some additional swelling in the right lower extremity underwent a DVT study which was negative. 07/04/2069 Patient denies having any new complains. States to be doing well. Denies having fevers chills nausea vomiting or diarrhea at this time. - Vital Signs Vital signs: Physical exam Gen. appearance oriented 3 in no distress Neck is supple no JVD Lungs good air entry clear to auscultation no rhonchi or wheezing however does have some mild abnormal sounds are on the hypopharynx. Heart S1-S2 heard regular rate and rhythm no murmurs appreciated Abdomen is soft nontender no organomegaly bowel sounds are intact Neurologically cranial nerves II-12 grossly intact no focal motor or sensory deficits noted Right knee appropriately tender to palpation no erythema noted. Slight edema noted nonpitting in nature beneath the knee. Skin no abnormalities appreciated Cultures were consistent with MSSA. Assessment and Plan Plan: 1 sepsis secondary to right prepatellar bursitis #2 noncardiogenic pulmonary edema #3 laryngitis likely secondary to recent upper airway procedure causing cough Patient is to be discharged on Keflex for 2 weeks. Patient is to follow-up with Dr. hoang. [facility] Patient will be given a work note for at least the next 2-3 days. Patient Condition at Discharge: Good Plan - Discharge Summary New Discharge Prescriptions: Cephalexin [Keflex] 500 mg PO Q6HR #56 cap HYDROcodone/APAP 5-325MG [[place] 5-325] 1 tab PO Q6HR PRN #30 tab PRN Reason: Mild To Moderate Pain Discharge Medication List Cholecalciferol [Vitamin D3] 2,000 unit PO DAILY 06/28/16 [History] Citalopram Hydrobromide [CeleXA] 40 mg PO HS 06/28/16 [History] Ibuprofen [Motrin] 800 mg PO Q8H PRN 06/28/16 [History] Lisinopril [Zestril] 20 mg PO HS 06/28/16 [History] Multivitamins, Thera [Multivitamin] 1 tab PO DAILY 06/28/16 [History] Cephalexin [Keflex] 500 mg PO Q6HR #56 cap 07/03/16 [Rx] HYDROcodone/APAP 5-325MG [[place] 5-325] 1 tab PO Q6HR PRN #30 tab 07/04/16 [Rx] Follow up Appointment(s)/Referral(s): Ryan Santiago MD [Primary Care Provider] - 07/07/16 1:15 pm Collins Kim DO [Doctor of Osteopathic Medicine] - 07/14/16 9:45 am Heidi Ibarra MD [STAFF PHYSICIAN] - 07/11/16 1:45 pm (Appointment at the [address], [place] [address]) Berta Huff MD [STAFF PHYSICIAN] - 2 Weeks Patient Instructions/Handouts: Cellulitis (DC), Knee Bursitis (GEN) Activity/Diet/Wound Care/Special Instructions: Keep incision clean and dry Call [facility] with questions or concerns [phone] Off Work till 07/07/2016, Can be on light duty thereafter. Discharge Disposition: HOME SELF-CARE
--- NOTE | 2016-07-05 14:17 | CDI ---
In responding to this query, please exercise your independent professional judgment. The [facility] Coding Staff and Clinical Documentation Specialists appreciate your assistance in clarifying documentation, maintaining compliance with coding guidelines, accurately documenting patients condition and capturing severity of illness. The fact that a question is asked does not imply that any particular answer is desired or expected. Communication forms are a method of clarifying documentation and are not made part of the Legal Health Record. Thank you in advance for your clarification. Last Revision, March 2015 Rogelio Taylor [address] [facility] [place] [address] Documentation Clarification Form Date: 07/05/2016 2:09:00 PM From: Brandy Almaguer Phone: Admit Date: 06/28/2016 11:23:00 PM Patient Name: Randy Herr Visit Number: [id number] Discharge Date: Dr. Collins Kim Per your operative note, a debridement was performed on the right knee, "using a Rominger, any suspicious tissue was removed bluntly." History/Risk Factors: Septic prepatellar bursitis. Clinical Indicators: Pain, swelling and redness around the right knee getting worse. Treatment: IV Cefazolin, Clindamycin and Vancomycin Five elements required for accurate and compliant documentation of a debridement : 1. Technique used (e.g., excisional, excised, cutting, etc.) 2. Instrument(s) used (e.g., scalpel, curette, etc.) 3. Nature of the tissue removed (e.g., necrotic, devitalized tissues, non- viable tissue, etc.) 4. Appearance and size of the wound (e.g., down to fresh bleeding tissue, 7cm x 10cm, etc.) 5. Depth of the debridement* (e.g., skin, subcutaneous tissue, fascia, muscle , bone, etc.) In order to capture the severity of condition and code the appropriate procedure could you please document the following: Excisional debridement (the removal of necrotic, devitalized tissue or slough by means of cutting away of tissue) Non-excisional debridement (the removal of necrotic, devitalized tissue or slough by means of flushing, brushing, or washing. (Irrigation) Other; with explanation for clinical findings Unable to determine (no explanation for clinical findings) Please document in your progress notes and discharge summary in order to capture severity of illness and risk of mortality. Include clinical findings that support your diagnosis. FYI: Press F11 to launch patient chart. Place X here if this finding has no clinical significance, is not applicable or if you are not able to provide any additional documentation. K[facility]
== END 2016-07-04 18:10 | disposition home or self-care (01) | DRG 871 ==
LOC: EC 20:16 → 4MS4W 23:23 → 6SEL 07-01 20:33
PROVIDERS: ADMIT Hospitalist; ATTEND Hospitalist
PROC: 0S9C0ZX Drainage of Right Knee Joint, Open Approach, Diagnostic (ICD-10-PCS; principal; 2016-07-01 15:15)
DX: A41.9 Sepsis, unspecified organism (principal); J81.0 Acute pulmonary edema; L03.115 Cellulitis of right lower limb; I50.9 Heart failure, unspecified; I10 Essential (primary) hypertension; F32.9 Major depressive disorder, single episode, unspecified; E66.9 Obesity, unspecified; M71.161 Other infective bursitis, right knee; B95.61 Methicillin susceptible Staphylococcus aureus infection as the cause of diseases classified elsewhere; G47.33 Obstructive sleep apnea (adult) (pediatric); J04.0 Acute laryngitis; K21.9 Gastro-esophageal reflux disease without esophagitis; R19.7 Diarrhea, unspecified; R06.00 Dyspnea, unspecified; Z68.36 Body mass index [BMI] 36.0-36.9, adult; Z87.891 Personal history of nicotine dependence; Z79.899 Other long term (current) drug therapy; Z82.49 Family history of ischemic heart disease and other diseases of the circulatory system
CPT/HCPCS: 36415; 71010; 71020; 80048; 80053; 80202; 83880; 84484; 85025; 87040; 87070; 87075; 87077; 87186; 87205; 87324; 90471; 90715; 93306; 94660; 96365; 96374; 99285

== ENCOUNTER 2017-11-19 17:24 | Emergency (ER) | payer OTHER ==
[2017-11-19 17:40] VITALS: TEMP 98.3
[2017-11-19] MEDS ORDERED: LORazepam 2 MG/ML INJ IM STA (19:03)
[2017-11-19] MEDS ORDERED: KETOROLAC 30 MG/ML 1 ML VIAL IM STA (19:03)
--- NOTE | 2017-11-19 19:46 | ED ---
Psych HPI - General Source: patient Mode of arrival: ambulatory <Rachell Byrd - Last Filed: 11/19/17 20:02> <Barbie Zhao - Last Filed: 11/19/17 20:07> - General Chief Complaint: Psychiatric Symptoms Stated Complaint: EPS eval Time Seen by Provider: 11/19/17 17:43 - History of Present Illness Initial Comments: 47-year-old male patient presents the emergency department today for evaluation of increased depression and anxiety. Patient states he has been having difficulty with this over the last 6 months. Patient states he has tried numerous medications from his primary care physician and recently did have an increase in the dosage of his current medication. He states that he doesn't think the medications are working. Patient states that he is constantly thinking about things that he has to get done and agonizing over them. Patient states he is quite anxious all the time. He states it is affecting his work. States he is unable to concentrate there. Patient states he is having frequent headaches with this. Patient states the headaches radiate from his neck up into the posterior head. States that he does get shaky especially on the left side. Patient denies any nausea or vomiting. States that he doesn't feel suicidal but feels that the only outlet from what he is experiencing is . He has no current plan to commit suicide. He denies any hallucinations. Denies any alcohol or drug use. States that he has been taking 0.5 mg of Xanax as needed but it doesn't seem to help much. He denies any other physical symptoms or concerns. He denies blurred or double vision, weakness, numbness, or tingling. (Rachell Byrd) - Related Data Home Medications Medication Instructions Recorded Confirmed Cholecalciferol [Vitamin D3] 2,000 unit PO DAILY 06/28/16 11/19/17 Lisinopril [Zestril] 20 mg PO HS 06/28/16 11/19/17 ALPRAZolam [Xanax] 0.5 mg PO BID 11/19/17 11/19/17 Sertraline [Zoloft] 150 mg PO DAILY 11/19/17 11/19/17 amLODIPine [Norvasc] 10 mg PO DAILY 11/19/17 11/19/17 busPIRone HCL 15 mg PO BID 11/19/17 11/19/17 Previous Rx's Medication Instructions Recorded LORazepam [Ativan] 1 mg PO TID #21 tab 11/19/17 Allergies Allergy/AdvReac Type Severity Reaction Status Date / Time No Known Allergies Allergy Verified 11/19/17 17:30 Review of Systems ROS Other: All systems not noted in ROS Statement are negative. <Rachell Byrd - Last Filed: 11/19/17 20:02> ROS Other: All systems not noted in ROS Statement are negative. <Barbie Zhao - Last Filed: 11/19/17 20:07> ROS Statement: Those systems with pertinent positive or pertinent negative responses have been documented in the HPI. Past Medical History Past Medical History: Hypertension, Sleep Apnea/CPAP/BIPAP History of Any Multi-Drug Resistant Organisms: None Reported Past Surgical History: Hernia Repair Past Psychological History: Anxiety, Depression Smoking Status: Former smoker Past Alcohol Use History: None Reported Past Drug Use History: None Reported - Past Family History Father Family Medical History: Congestive Heart Failure (CHF) Additional Family Medical History / Comment(s): Depression Mother Family Medical History: Cancer, Hyperlipidemia <Rachell Byrd - Last Filed: 11/19/17 20:02> General Exam Limitations: no limitations General appearance: alert, in no apparent distress, anxious, other (This is a well-developed, well-nourished adult male patient in no acute distress. Vital signs upon presentation are temperature 98.3F, pulse 86, respirations 16, blood pressure 137/87, pulse ox 96% on room air.) Eye exam: Present: normal appearance, PERRL, EOMI. Absent: scleral icterus, conjunctival injection, periorbital swelling ENT exam: Present: normal exam, normal oropharynx, mucous membranes moist Respiratory exam: Present: normal lung sounds bilaterally. Absent: respiratory distress, wheezes, rales, rhonchi, stridor Cardiovascular Exam: Present: regular rate, normal rhythm, normal heart sounds. Absent: systolic murmur, diastolic murmur, rubs, gallop, clicks GI/Abdominal exam: Present: soft, normal bowel sounds. Absent: distended, tenderness, guarding, rebound, rigid Neurological exam: Present: alert, oriented X3, CN II-XII intact, other ( Strength in all 4 extremities is 5/5.) Psychiatric exam: Present: depressed, anxious, other (Tearful). Absent: homicidal ideation, suicidal ideation Skin exam: Present: warm, dry, intact, normal color. Absent: rash <Rachell Byrd - Last Filed: 11/19/17 20:02> Vital Signs 11/19/17 17:34 Temperature 98.3 F Pulse Rate 86 Respiratory 16 Rate Blood Pressure 137/87 O2 Sat by Pulse 96 Oximetry Medical Decision Making <Rachell Byrd - Last Filed: 11/19/17 20:02> <Barbie Zhao - Last Filed: 11/19/17 20:07> - Medical Decision Making Patient presented for evaluation of increased anxiety and depression. He also reported "stress" headaches that started around the same time of his symptom onset six months ago. I did offer CT scanning for further evaluation of his headaches. He refuses at this time stating that he wanted to follow up with his primary care physician to discuss this. He did have evaluation by emergency psych services and it is felt he would benefit more from outpatient services. He is given referral to several outpatient resources. Plan is for him to follow up with outpatient couselor tomorrow. He will be given a prescription of ativan to better manage his symptoms. Return parameters were discussed in detail. Patient verbalizes understanding and agrees with this plan. (Rachell Byrd ) She was seen and evaluated independently by the nurse practitioner. I was present and available in the emergency department for consultation but was not asked to evaluate the patient. (Barbie Zhao) Disposition Is patient prescribed a controlled substance at d/c from ED?: No Time of Disposition: 20:01 <Rachell Byrd - Last Filed: 11/19/17 20:02> <Barbie Zhao - Last Filed: 11/19/17 20:07> Clinical Impression: Depression, Anxiety Disposition: HOME SELF-CARE Condition: Good Instructions: Depression (ED), Anxiety (ED) Additional Instructions: Take medications as directed. Do not drive or drink alcohol while taking medication. Follow up outpatient with mental health services as directed. Return here immediately for any new, worsening, or concerning symptoms. Prescriptions: LORazepam [Ativan] 1 mg PO TID #21 tab Referrals: Ryan Santiago MD [Primary Care Provider] - 1-2 days
[2017-11-19 20:45] VITALS: BP 124/75; PULSE 63; RESP 18
== END 2017-11-19 20:45 | disposition home or self-care (01) ==
LOC: EC 17:24
DX: F32.9 Major depressive disorder, single episode, unspecified (principal); F41.9 Anxiety disorder, unspecified; R51 Headache; I10 Essential (primary) hypertension; G47.30 Sleep apnea, unspecified; Z99.89 Dependence on other enabling machines and devices; Z87.891 Personal history of nicotine dependence; Z79.899 Other long term (current) drug therapy
CPT/HCPCS: 82075; 99284; 96372 ×2; J2060; J1885

== ENCOUNTER → 2022-02-25 | Outpatient (CLI) | payer BC ==
--- NOTE | 2022-02-25 08:50 | US ---
EXAMINATION TYPE: US liver DATE OF EXAM: 02/25/2022 COMPARISON: NONE CLINICAL HISTORY: R74.01 ELEVATION OF LEVELS OF LIVER. Elevated liver enzymes level. TECHNIQUE: Multiple sonographic images of the right upper quadrant are obtained. 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 Exam is limited diag nostically. Pancreas: Not well seen. Appears hyperechoic Liver: Increased echogenicity and attenuation. Very limited due to limited penetration. Appears en larged. Hypoechoic area seen adjacent to the gallbladder: 1.8 x 1.1 x 1.1 cm. Gallbladder: Limited due to gas Evidence for sonographic Huff's sign: No CBD: Obscured Right Kidney: No hydronephrosis or masses seen IVC was obscured. IMPRESSION: Hepatic steatosis with underlying hepatomegaly and areas of focal fatty sparing.
[2022-02-25 18:28] LABS: Ceruloplasmin 24.8 mg/dL (20.0-60.0)
[2022-02-25 19:15] LABS: % Iron Saturation 27.79 (15.00-50.00); African American GFR (CKD) 103.3 (60.0-200.0); Albumin 4.7 g/dL (3.8-4.9); Albumin/Globulin Ratio 1.97 (1.60-3.17); Anion Gap 14.5 mmol/L (10.00-18.00); BUN/Creat Ratio 23.31 Ratio (12.00-20.00); Blood Urea Nitrogen 22.4 mg/dL (9.0-27.0); C Reactive Protein 0.3 mg/dL (0.00-0.80); Calcium 9.4 mg/dL (8.7-10.3); Carbon Dioxide 19.4 mmol/L (20.0-27.5); Globulin 2.4 g/dL (1.6-3.3); Non-African American GFR(CKD) 89.1 (60.0-200.0); Potassium 5.1 mmol/L (3.5-5.5); Total Bilirubin 0.3 mg/dL (0.30-1.20); Total Protein 7.1 g/dL (6.2-8.2)
[2022-02-25 20:21] LABS: Hepatitis A Antibody IgM Nonreactive (Nonreactive); Hepatitis B Core IgM Nonreactive (Nonreactive); Hepatitis B Surface Antigen Nonreactive (Nonreactive); Hepatitis C IgG Antibody Nonreactive (Nonreactive)
[2022-02-25 21:05] LABS: Gliadin AB IgA, Deaminated NEGATIVE (NEGATIVE); Gliadin AB IgA, Unit 0.4 U/mL; Gliadin AB IgG, Deaminated NEGATIVE (NEGATIVE); Gliadin AB IgG, Unit <0.4 U/mL
[2022-02-28 10:14] LABS: Protein, Total 7.2 g/dL (6.2-8.2)
[2022-02-28 14:05] LABS: Albumin 4.36 g/dL (3.80-4.90); Gamma Globulin 0.86 g/dL (0.70-1.50)
== END | disposition home or self-care (01) ==
LOC: RADUSWWP 08:04
PROVIDERS: ATTEND Family Medicine
DX: K76.0 Fatty (change of) liver, not elsewhere classified (principal); R16.0 Hepatomegaly, not elsewhere classified
CPT/HCPCS: 76705; 80053; 80074; 82103; 82150; 82390; 82728; 83516; 83540; 83550; 83690; 84165; 85652; 86038; 86140